=== PATIENT | male | born 1990 | race Native Hawaiian/Other Pacific Islander ===

== ENCOUNTER 2018-07-28 14:03 | Inpatient (IN) ==
[2018-07-28] MEDS ORDERED: Famotidine PF Inj 20 MG/2 ML Vial IV.PUSH ONE (18:16)
[2018-07-28] MEDS ORDERED: Sod Chloride 0.9% Inj 1,000 ML IV.SIG ONE (18:16)
[2018-07-28] MEDS ORDERED: MethylPREDNISolone Sod Succinate Inj 40 MG/ML Vial IV.PUSH ONE (18:19)
--- NOTE | 2018-07-28 18:28 | ED ---
HPI General Chief Complaint: Abdominal Pain Stated Complaint: GI/ Complaint Time Seen by Provider: 07/28/18 17:41 Source: patient Mode of arrival: ambulatory Limitations: no limitations History of Present Illness HPI narrative: 27-year-old male complains of abdominal pain. Patient states that the pain started about 2-1/2 weeks ago. Patient states that the pain has been constant pain cramping pain burning pain localized to upper abdomen with radiation to the mid abdomen. Patient has history of ulcerative colitis. Patient was seen in emergency room [address] scan abdomen pelvis shows colitis. Patient was given prescription for Cipro, Flagyl, prednisone and Zofran and discharged home. Patient states that he stopped taking Cipro and Flagyl after 2 days of that. Patient continued to take prednisone and Zofran as directed. Patient states that he had persistent nausea vomiting unable to keep medication down for the past 10 days. Patient was on Asacol and unable to keep that down either. Patient denies any fever chills. Patient states that he has persistent dry cough for the past 2 weeks also. Patient denies any chest pain or shortness of breath. Patient was seen by his blanking machine operator and was advised to acute come to ED for admission for IV fluids and IV and IV steroid. Patient has history of C. difficile in the past. MD complaint: Reports abdominal pain Onset (ago): week(s) Pain Consistency: constant Location: Reports periumbilical, LUQ, RUQ and epigastric Severity: moderate Severity scale (1-10): 7 Quality: Reports cramping and sharp Radiation: Reports none Migration to: Reports periumbilical Relieving factors: nothing Exacerbating factors: nothing Context: Reports history of similar episodes Associated symptoms: Reports nausea and vomiting Related Data Home Medications Medication Instructions Recorded Confirmed mesalamine [Asacol HD] 800 mg PO BID 07/18/18 07/18/18 Previous Rx's Medication Instructions Recorded ondansetron [Zofran ODT] 4 mg PO Q6-8H PRN #20 tab 07/18/18 oxycodone-acetaminophen [Percocet] 1 tab PO Q6H PRN #7 tab NS 07/18/18 Allergies Allergy/AdvReac Type Severity Reaction Status Date / Time No Known Allergies Allergy Verified 07/28/18 18:58 Review of Systems ROS: all other systems reviewed are negative [facility] Medical History Medical History Ulcerative colitis (Acute) Social History Social History Substance History: No History of Abuse Smoking Status: Never smoker How Often Do You Have a Drink Containing Alcohol: Never Recent Travel in [facility] within the Last 8 Weeks: No Recent Out of Country Travel within the Last 8 Weeks: No Immunization History Tetanus Immunization: <5 Years Exam Narrative Exam Narrative: GENERAL: Well-nourished, well-developed patient. SKIN: Focused skin assessment warm/dry. HEAD: Normocephalic. EYES: No scleral icterus. No injection or drainage. NECK: Supple, trachea midline. No JVD or lymphadenopathy. CARDIOVASCULAR: Regular rate and rhythm without murmurs, gallops, or rubs. RESPIRATORY: Breath sounds equal bilaterally. No accessory muscle use. GASTROINTESTINAL: Abdomen soft, nondistended. Patient has moderate tenderness on palpation of abdomen and epigastric area. No rebound tenderness. No mass. MUSCULOSKELETAL: No cyanosis, or edema. BACK: Nontender without obvious deformity. No CVA tenderness. Neurologic exam normal. Course Initial Documented Vital Signs Temperature 99.3 F 07/28/18 14:11 Pulse Rate 99 H 07/28/18 14:11 Respiratory Rate 16 07/28/18 14:11 Blood Pressure 119/67 07/28/18 14:11 Pulse Oximetry 96 07/28/18 14:11 Last Documented Vital Signs Temperature 99.3 F 07/28/18 14:11 Pulse Rate 94 H 07/28/18 18:12 Respiratory Rate 17 07/28/18 18:12 Blood Pressure 114/58 L 07/28/18 18:12 Pulse Oximetry 97 07/28/18 18:12 Medical Decision Making MDM Narrative Medical decision making narrative: 27-year-old male with persistent abdominal pain, nausea vomiting. History of ulcerative colitis. Patient was seen by blanking machine operator and advised admission for IV treatment. Normal saline solution 1 L IV bolus. Normal saline solution 125 cc an hour. Pepcid 20 mg IV. Solu-Medrol 40 mg IV now and every 8 hour. Patient can have clear fluid. Medical Screen Exam Complete: Yes Emergency Medical Condition: Yes Differential Diagnosis Differential Diagnosis: Differential diagnosis including acute exacerbation of ulcerative colitis, gastroenteritis, dehydration, electrolyte imbalance. Lab Data Lab results reviewed: Yes I reviewed the patient's lab results. Result diagrams: 07/28/18 18:30 07/28/18 18:30 Lab Results 07/28/18 07/28/18 Range/Units 18:30 18:30 WBC 11.9 H (4.0-11.0) th/mm3 RBC 4.12 L (4.50-5.90) mil/mm3 Hgb 11.6 L (13.0-17.0) gm/dL Hct 35.5 L (39.0-51.0) % MCV 86.1 (80.0-100.0) fL MCH 28.2 (27.0-34.0) pg MCHC 32.8 (32.0-36.0) % RDW 13.6 (11.6-17.2) % Plt Count 393 (150-450) th/mm3 MPV 8.7 (7.0-11.0) fL Neut % (Auto) 60.2 (16.0-70.0) % Lymph % (Auto) 24.6 (9.0-44.0) % [place] % (Auto) 12.4 H (0.0-8.0) % Eos % (Auto) 2.5 (0.0-4.0) % Baso % (Auto) 0.3 (0.0-2.0) % Neut # (Auto) 7.1 (1.8-7.7) th/mm3 Lymph # (Auto) 2.9 (1.0-4.8) th/mm3 [place] # (Auto) 1.5 H (0.0-0.9) th/mm3 Eos # (Auto) 0.3 (0.0-0.4) th/mm3 Baso # (Auto) 0.0 (0.0-0.2) th/mm3 WBC Differential . Differential Comment Auto diff final Sodium 138 (136-145) meq/L Potassium 4.0 (3.5-5.1) meq/L Chloride 105 (98-107) meq/L Carbon Dioxide 25.8 (21.0-32.0) meq/L Anion Gap 7 (5-15) meq/L BUN 4 L (7-18) mg/dL Creatinine 0.82 (0.60-1.30) mg/dL Estimated GFR Greater than 89 (>89) mL/min Random Glucose 79 (74-106) mg/dL Calcium 8.6 (8.5-10.1) mg/dL Total Bilirubin 0.3 (0.2-1.0) mg/dL AST 27 (15-37) U/L ALT 22 (12-78) U/L Alkaline Phosphatase 93 (45-117) U/L Total Protein 7.8 (6.4-8.2) g/dL Albumin 2.8 L (3.4-5.0) g/dL Lipase 115 (73-393) U/L Imaging Data Radiologist's impression: Chest X-Ray 07/28/18 18:16 CONCLUSION: Negative for acute process Discharge Plan Discharge Disposition Patient Disposition: 30 Still Patient Discharge Details Diagnosis: Ulcerative colitis without complications, Intractable nausea and vomiting Physicians Team ED Provider: Francisco Sheldon Primary Care Provider: Zandra Otero Rxs /Orders / Referrals /Forms Prescriptions: No Action mesalamine [Asacol HD] 800 mg Tablet,Delayed Release (Dr/Ec) 800 mg PO BID RF: 0 ondansetron [Zofran ODT] 4 mg tablet,disintegrating 4 mg PO Q6-8H PRN (Reason: nausea and vomiting) Qty: 20 RF: 0 oxycodone-acetaminophen [Percocet] 5-325 mg tablet 1 tab PO Q6H PRN (Reason: pain) Qty: 7 RF: 0 Discharge Interventions Interventions: Vital Signs Last Done: 07/28/18 18:12 Status ED Status: With Doctor
[2018-07-28] MEDS ORDERED: Sod Chloride 0.9% Inj 1,000 ML IV.CONT SCH (18:30)
--- NOTE | 2018-07-28 18:48 | XR ---
EXAM DATE: 07/28/2018 6:42 PM EST AGE/SEX: 27 years / Male INDICATIONS: Cough, vomiting. CLINICAL DATA: This is the patient's initial encounter. Patient reports that signs and symptoms have been present for 1 week and indicates a pain score of 0/10. MEDICAL/SURGICAL HISTORY: None. None. COMPARISON: [facility] [place] 1V SINGLE AP, 07/18/2018. . FINDINGS: A single AP view of the chest demonstrates the lungs to be symmetrically aerated without evidence of mass, infiltrate or effusion. The cardiomediastinal contours are unremarkable. Osseous structures a re intact. CONCLUSION: Negative for acute process Electronically signed by: Joe Singh MD 07/28/2018 6:47 PM EST
[2018-07-28 18:54] LABS: Baso % (Auto) 0.3 % (0.0-2.0); Eos # (Auto) 0.3 th/mm3 (0.0-0.4); Eos % (Auto) 2.5 % (0.0-4.0); Hematocrit 35.5 % (39.0-51.0); Hemoglobin 11.6 gm/dL (13.0-17.0); Lymph # (Auto) 2.9 th/mm3 (1.0-4.8); Lymph % (Auto) 24.6 % (9.0-44.0); Mean Corpuscular HGB Conc 32.8 % (32.0-36.0); Mean Corpuscular Hemoglobin 28.2 pg (27.0-34.0); Mean Corpuscular Volume 86.1 fL (80.0-100.0); Mean Platelet Volume 8.7 fL (7.0-11.0); Mono # (Auto) 1.5 th/mm3 (0.0-0.9); Mono % (Auto) 12.4 % (0.0-8.0); Neut # (Auto) 7.1 th/mm3 (1.8-7.7); Neut % (Auto) 60.2 % (16.0-70.0); Platelet Count 393 th/mm3 (150-450); Red Blood Count 4.12 mil/mm3 (4.50-5.90); Red Cell Distribution Width 13.6 % (11.6-17.2); White Blood Count 11.9 th/mm3 (4.0-11.0)
[2018-07-28 19:16] LABS: Alanine Aminotransferase 22 U/L (12-78); Albumin 2.8 g/dL (3.4-5.0); Anion Gap 7 meq/L (5-15); Aspartate Aminotransferase 27 U/L (15-37); Blood Urea Nitrogen 4 mg/dL (7-18); Calcium 8.6 mg/dL (8.5-10.1); Carbon Dioxide 25.8 meq/L (21.0-32.0); Chloride 105 meq/L (98-107); Glomerular Filtration Rate Greater Than 89 mL/min (>89); Glucose,Random 79 mg/dL (74-106); Lipase 115 U/L (73-393); Sodium 138 meq/L (136-145)
[2018-07-28 19:18] LABS: Alkaline Phosphatase 93 U/L (45-117); Total Protein 7.8 g/dL (6.4-8.2)
[2018-07-28] MEDS: Sod Chloride 0.9% Inj 1,000 ML IV.CONT SCH (20:52)
[2018-07-29] MEDS: Acetaminophen 325 MG Tablet PO PRN ×3 (01:28→17:07)
[2018-07-29] MEDS: MethylPREDNISolone Sod Succinate Inj 40 MG/ML Vial IV.PUSH SCH ×3 (01:31→17:09)
[2018-07-29] MEDS: Sod Chloride 0.9% Inj 1,000 ML IV.CONT SCH ×3 (06:43→22:18)
--- NOTE | 2018-07-29 08:33 | P.HP ---
History of Present Illness Primary Care Physician: Zandra Otero MD History of Present Illness: Yoav is a 27 year old man who presented to the ER last night with dry cough, vomiting, abdominal pain, and bloody diarrhea x10 days. He reports that last night he had "night sweats" and was freezing cold. His sheets were soaked in sweat this morning. He reports that after he was taken off mercaptopurine by Dr. Diaz on 06/27, he began to have abdominal pain and bloody diarrhea that sent him to the ER 07/18. He was put on antibiotics and prednisone but stopped his antibiotics two days after discharge because his stool sample came back negative for c. dificile. His pain persisted and he could not keep food or medications down for the past 10 days. He reports he lost 20 pounds in the last two weeks. He describes his abdominal pain as epigastric that radiates to his lower left quadrant when bearing down to have a bowel movement. He says the pain is dull, constant, and a 7/10 on the pain scale. It increases to an 8/10 and becomes sharp when having a bowel movement. The patient is having frequent, urgent, diarrhea. The patient describes passing hematochezia, "dark red clumps of blood" and "bubbly mucous" rectally. He denies melena, coffee ground emesis, or tenesmus. He vomited once this morning; he attributes his vomiting to the pain and says that Zofran does not help. He is concerned about the persistent cough and does not understand why he has it. He denies recent URI, allergic rhinitis or post-nasal drip. PMH: Ulcerative colitis; diagnosed 2006 Viral Meningitis (hospitalized 2016) C. Difficile (hospitalized 2016) PSHx: None Procedures: EGD, colonoscopy Medications: Home: Mesalamine 800 mg PO BID Social Hx: Never smoker, never drank alcohol Allergies: NKDA Family History: Paternal aunt with ulcerative colitis Radha Piedra, MS3 Inpatient Certification: I certify that the inpatient services were ordered in accordance with Medicare regulations governing the order. This includes certification that hospital inpatient services are reasonable and necessary and in the case of services not specified as inpatient-only under 42 CFR 419.22(n), that they are appropriately provided as inpatient services in accordance to with the 2-midnight benchmark under 43 CFR 412.3(e) Estimated Total Length of Stay (Days): 3 Plans for Post Hospital Care: Home [facility] - History History Provided By: Patient - Medical History Medical History: Medical History (Last Reviewed 07/28/18 @ 18:25 by Francisco Sheldon MD) Ulcerative colitis - Tobacco History Second Hand Smoke Exposure: No Tobacco Use In Past 30 Days: No Smoking Status: Never smoker - Alcohol History How Often Do You Have a Drink Containing Alcohol: Never - Substance Use History Substance History: No History of Abuse - Travel History Recent Travel in the [place] Within the Last 8 Weeks: No Recent Travel Out of the Country Within the Last 8 Weeks: No - Immunization History Tetanus Immunization: <5 Years Medications and Allergies Active Medications: Active Medications Acetaminophen (Tylenol) 650 mg PO Q4H PRN PRN Reason: Temp > 100.4 Last Admin: 07/29/18 08:00 Dose: 650 mg Sodium Chloride (Ns Inj) 1,000 mls @ 100 mls/hr IV.CONT .Q10H [facility] Last Infusion: 07/29/18 08:02 Dose: 100 mls/hr Methylprednisolone Sodium Succinate (Solumedrol Inj) 40 mg IV.PUSH Q8H [facility] Last Admin: 07/29/18 01:31 Dose: 40 mg Ondansetron HCl (Zofran Inj) 4 mg IV.PUSH Q6H PRN PRN Reason: NAUSEA OR VOMITING Allergies Allergy/AdvReac Type Severity Reaction Status Date / Time No Known Allergies Allergy Verified 07/28/18 18:58 Home Medications Medication Instructions Recorded Confirmed Type mesalamine [Asacol HD] 800 mg PO BID 07/18/18 07/28/18 History mercaptopurine 150 mg PO DAILY 07/28/18 07/28/18 History Exam Vital signs: Vital Signs 07/28/18 14:11 07/28/18 18:12 07/28/18 19:47 Temperature 99.3 F Pulse Rate 99 H 94 H Respiratory Rate 16 17 Blood Pressure 119/67 114/58 L 122/78 Pulse Oximetry 96 97 07/29/18 04:00 Temperature Pulse Rate 80 Respiratory Rate 18 Blood Pressure 101/58 L Pulse Oximetry 95 Intake & Output 07/28/18 07/29/18 07/29/18 18:59 06:59 18:59 Intake Total 1120 / 1120 Balance 1120 / 1120 Weight 248 kg 112.491 kg Intake: IV 1000 / 1000 Oral 120 / 120 Other: # Voids 4 Date of Last Bowel Movement 07/29/18 # Bowel Movements 2 Weight On Admission 112.491 kg Narrative: Pleasant young man, appears stated age. In no acute distress but visibly uncomfortable and in pain. Cardiovascular: Regular heart rate, no rubs, murmurs, or gallops upon auscultation. Respiratory: clear breath sounds, no rales, rhonchi, or wheezing Gastrointestinal: Hypoactive bowel sounds. Soft abdomen, no guarding or distension. Diffuse abdominal tenderness upon palpation, but increased in the epigastric region and lower quadrants. Radha Tadeo, MS3 Results - Labs CBC & Chem 7: 07/28/18 18:30 07/29/18 06:20 Labs: Laboratory Results - last 24 hr 07/28/18 07/28/18 18:30 18:30 WBC 11.9 H RBC 4.12 L Hgb 11.6 L Hct 35.5 L MCV 86.1 MCH 28.2 MCHC 32.8 RDW 13.6 Plt Count 393 MPV 8.7 Neut % (Auto) 60.2 Lymph % (Auto) 24.6 [place] % (Auto) 12.4 H Eos % (Auto) 2.5 Baso % (Auto) 0.3 Neut # (Auto) 7.1 Lymph # (Auto) 2.9 [place] # (Auto) 1.5 H Eos # (Auto) 0.3 Baso # (Auto) 0.0 WBC Differential . Differential Comment Auto diff final Sodium 138 Potassium 4.0 Chloride 105 Carbon Dioxide 25.8 Anion Gap 7 BUN 4 L Creatinine 0.82 Estimated GFR Greater than 89 Random Glucose 79 Calcium 8.6 Total Bilirubin 0.3 AST 27 ALT 22 Alkaline Phosphatase 93 Total Protein 7.8 Albumin 2.8 L Lipase 115 - Imaging Impressions Chest X-Ray 07/28/18 18:16 CONCLUSION: Negative for acute process Caprini VTE Risk Assessment Caprini Risk Assessment Model: Point Value = 1 Point Value = 2 Point Value = 3 Point Value = 5 Age 41-60 Minor surgery BMI > 25 kg/m2 Swollen legs Varicose veins or History of unexplained or recurrent spontaneous Oral contraceptives or hormone replacement Sepsis (< 1 month) Serious lung disease, including pneumonia (< 1 month) Abnormal pulmonary function Acute myocardial infarction Congestive heart failure (< 1 month) History of inflammatory bowel disease Medical patient at bed rest Age 61-74 Arthroscopic surgery Major open surgery (> 45 min) Laparoscopic surgery (> 45 min) Malignancy Confined to bed (> 72 hours) Immobilizing plaster cast Central venous access Age >= 75 History of VTE Family history of VTE Factor V Leiden Prothrombin [id number] Lupus anticoagulant Anticardiolipin antibodies Elevated serum homocysteine Heparin-induced thrombocytopenia Other congenital or acquired thrombophilia Stroke (< 1 month) Elective arthroplasty Hip, pelvis, or leg fracture Acute spinal cord injury (< 1 month) Prophylaxis Regimen: Total Risk Factor Score Risk Level Prophylaxis Regimen 0-1 Low Early ambulation 2 Moderate Order ONE of the following: *Sequential Compression Device (SCD) *Heparin 5000 units SQ BID 3-4 Higher Order ONE of the following medications: *Heparin 5000 units SQ TID *Enoxaparin/Lovenox 40 mg SQ daily (WT < 150 kg, CrCl > 30 mL/min) *Enoxaparin/Lovenox 30 mg SQ daily (WT < 150 kg, CrCl > 10-29 mL/min) *Enoxaparin/Lovenox 30 mg SQ BID (WT < 150 kg, CrCl > 30 mL/min) AND/OR *Sequential Compression Device (SCD) 5 or more Highest Order ONE of the following medications: *Heparin 5000 units SQ TID (Preferred with Epidurals) *Enoxaparin/Lovenox 40 mg SQ daily (WT < 150 kg, CrCl > 30 mL/min) *Enoxaparin/Lovenox 30 mg SQ daily (WT < 150 kg, CrCl > 10-29 mL/min) *Enoxaparin/Lovenox 30 mg SQ BID (WT < 150 kg, CrCl > 30 mL/min) AND *Sequential Compression Device (SCD) Assessment and Plan - Plan This is a 27 year old male with a history of ulcerative colitis presenting with dry cough, abdominal pain, bloody diarrhea, and vomiting. 1. Ulcerative colitis * abdominal pain - Patient is currently on acetaminophen for pain. May add more pain medication to manage. * bloody diarrhea * vomiting - continue fluids, NS at 125 cc/hour pain pattern suggest left-sided severe UC. treat with systemic steroids ( prednisone 40 to 60 mg/day) in addition to mesalamine/5-ASA. If symptoms persist then add sulfasalazine titrated up to 4-6 g/day. 2. Cough - chest x ray was negative for acute process. will consider symptomatic treatment Radha Piedra, MS3
[2018-07-29 08:37] LABS: Anion Gap 8 meq/L (5-15); Blood Urea Nitrogen 4 mg/dL (7-18); Calcium 8.7 mg/dL (8.5-10.1); Chloride 106 meq/L (98-107); Glomerular Filtration Rate Greater Than 89 mL/min (>89); Glucose,Random 116 mg/dL (74-106); Sodium 139 meq/L (136-145)
--- NOTE | 2018-07-29 10:06 | P.HPIM ---
History of Present Illness Primary Care Physician: Zandra Otero MD History of Present Illness: Yoav is a 27 year old man with a past medical history which includes Ulcerative colitis Dx at age 15, viral meningitis and C Diff 2015. Patient reports he is current he has been having his current ulcerative colitis flare since approximately July 02. Patient was on Mercaptopurine but had stopped mid June. Patient was seen 07/18/18 prescribed Cipro, Flagyl and prednisone. Patient reports he stopped taking the Cipro and Flagyl once he was told that his C diff testing was negative. Patient only took the Cipro and Flagyl for two days. Patient continued to take the prednisone with no relief. Patient spoke with Dr. Rowell outpatient and was instructed to go to the ER for further evaluation. Patient reports that his bloody liquid BMs are getting worse. He is now having approximately 16 bloody loose BMs a day. Patient also reports dull aching pain across his left lower quadrant and pain across his upper abdomen. Patient also reports N/V and chills. Patient has been able to take minimal PO intake and reports feeling weak. PMH: Ulcerative colitis; diagnosed 2006 Viral Meningitis (hospitalized 2016) C. Difficile (hospitalized 2016) PSHx: None Procedures: EGD, colonoscopy Medications: Home: Mesalamine 800 mg PO BID Social Hx: has a PHD in chiropractic medicine lives at home with his parents Never smoker, never drank alcohol Allergies: NKDA Family History: Paternal aunt with ulcerative colitis Inpatient Certification Inpatient Certification: I certify that the inpatient services were ordered in accordance with Medicare regulations governing the order. This includes certification that hospital inpatient services are reasonable and necessary and in the case of services not specified as inpatient-only under 42 CFR 419.22(n), that they are appropriately provided as inpatient services in accordance to with the 2-midnight benchmark under 43 CFR 412.3(e) Estimated Total Length of Stay (Days): 3 Plans for Post Hospital Care: Home Medications and Allergies Allergies Allergy/AdvReac Type Severity Reaction Status Date / Time Pork/Porcine Containing AdvReac Nausea/Vomi Verified 07/30/18 15:06 Products ting Home Medications Medication Instructions Recorded Confirmed Type mesalamine [Asacol HD] 800 mg PO BID 07/18/18 07/28/18 History mercaptopurine 150 mg PO DAILY 07/28/18 07/28/18 History Active Medications: Active Medications Acetaminophen (Tylenol) 650 mg PO Q4H PRN PRN Reason: Temp > 100.4 Last Admin: 07/29/18 08:00 Dose: 650 mg Sodium Chloride (Ns Inj) 1,000 mls @ 100 mls/hr IV.CONT .Q10H [facility] Last Infusion: 07/29/18 08:02 Dose: 100 mls/hr Methylprednisolone Sodium Succinate (Solumedrol Inj) 40 mg IV.PUSH Q8H [facility] Last Admin: 07/29/18 01:31 Dose: 40 mg Ondansetron HCl (Zofran Inj) 4 mg IV.PUSH Q6H PRN PRN Reason: NAUSEA OR VOMITING Physical Exam Vital signs: Last Vital Signs Temp 98.4 F 07/29/18 08:46 Pulse 86 07/29/18 08:46 Resp 20 07/29/18 08:46 BP 110/65 07/29/18 08:46 Pulse Ox 95 07/29/18 08:46 Narrative: GENERAL: This is a well-nourished, well-developed patient CARDIOVASCULAR: Regular rate and rhythm RESPIRATORY: Clear to auscultation. Breath sounds equal bilaterally. GASTROINTESTINAL: Abdomen soft, tender LLQ and epigastric area, nondistended. hyperactive active bowel sounds MUSCULOSKELETAL: Extremities without clubbing, cyanosis, or edema. NEURO: Alert & Oriented x4 to person, place, time, situation. Moves all ext x4 Results Labs CBC & Chem 7: 08/01/18 05:18 08/01/18 05:18 Caprini VTE Risk Assessment Caprini VTE Risk Assessment: No/Low Risk (score <= 1) Caprini Risk Assessment Model: Point Value = 1 Point Value = 2 Point Value = 3 Point Value = 5 Age 41-60 Minor surgery BMI > 25 kg/m2 Swollen legs Varicose veins or History of unexplained or recurrent spontaneous Oral contraceptives or hormone replacement Sepsis (< 1 month) Serious lung disease, including pneumonia (< 1 month) Abnormal pulmonary function Acute myocardial infarction Congestive heart failure (< 1 month) History of inflammatory bowel disease Medical patient at bed rest Age 61-74 Arthroscopic surgery Major open surgery (> 45 min) Laparoscopic surgery (> 45 min) Malignancy Confined to bed (> 72 hours) Immobilizing plaster cast Central venous access Age >= 75 History of VTE Family history of VTE Factor V Leiden Prothrombin [id number] Lupus anticoagulant Anticardiolipin antibodies Elevated serum homocysteine Heparin-induced thrombocytopenia Other congenital or acquired thrombophilia Stroke (< 1 month) Elective arthroplasty Hip, pelvis, or leg fracture Acute spinal cord injury (< 1 month) Prophylaxis Regimen: Total Risk Factor Score Risk Level Prophylaxis Regimen 0-1 Low Early ambulation 2 Moderate Order ONE of the following: *Sequential Compression Device (SCD) *Heparin 5000 units SQ BID 3-4 Higher Order ONE of the following medications: *Heparin 5000 units SQ TID *Enoxaparin/Lovenox 40 mg SQ daily (WT < 150 kg, CrCl > 30 mL/min) *Enoxaparin/Lovenox 30 mg SQ daily (WT < 150 kg, CrCl > 10-29 mL/min) *Enoxaparin/Lovenox 30 mg SQ BID (WT < 150 kg, CrCl > 30 mL/min) AND/OR *Sequential Compression Device (SCD) 5 or more Highest Order ONE of the following medications: *Heparin 5000 units SQ TID (Preferred with Epidurals) *Enoxaparin/Lovenox 40 mg SQ daily (WT < 150 kg, CrCl > 30 mL/min) *Enoxaparin/Lovenox 30 mg SQ daily (WT < 150 kg, CrCl > 10-29 mL/min) *Enoxaparin/Lovenox 30 mg SQ BID (WT < 150 kg, CrCl > 30 mL/min) AND *Sequential Compression Device (SCD) Assessment and Plan Plan Yoav is a 27 year old man with a past medical history which includes Ulcerative colitis, viral meningitis and C Diff 2015. Patient reports he is current he has been having his current ulcerative colitis flare since approximately July 02. Patient was seen 07/18/18 prescribed Cipro, Flagyl and prednisone. Patient was on Mercaptopurine but had stopped mid June. Patient reports he stopped taking the Cipro and Flagyl once he was told that his C diff testing was negative. Patient only took the Cipro and Flagyl for two days. Patient continued to take the prednisone with no relief. Patient spoke with Dr. Rowell outpatient and was instructed to go to the ER for further evaluation. Patient reports that his bloody liquid BMs are getting worse. He is now having approximately 16 bloody loose BMs a day. Patient also reports left lower quadrant pain and pain across his upper abdomen. Patient also reports N/V and chills. Ulcerative colitis Continue solu medrol 40 mg IV Q8H NS at 100ml/H Zofran as needed Liquid diet consult GI HgB on admission 11.6 recheck now and tomorrow AM DVT prophylaxis with SCDs Attending Attestation Patient examined. Assessment and plan formulated with Joan Castillo PA-C. I agree with the above. H&P: Quality VTE Deep Vein Thrombosis/Pulmonary Embolism Present on Admission: No
[2018-07-29 11:43] LABS: Baso % (Auto) 0.2 % (0.0-2.0); Hematocrit 34.2 % (39.0-51.0); Hemoglobin 11.3 gm/dL (13.0-17.0); Lymph # (Auto) 1.4 th/mm3 (1.0-4.8); Lymph % (Auto) 9.9 % (9.0-44.0); Mean Corpuscular HGB Conc 33.1 % (32.0-36.0); Mean Corpuscular Volume 87.5 fL (80.0-100.0); Mean Platelet Volume 8.3 fL (7.0-11.0); Mono % (Auto) 6.8 % (0.0-8.0); Neut # (Auto) 12.1 th/mm3 (1.8-7.7); Neut % (Auto) 83.1 % (16.0-70.0); Platelet Count 422 th/mm3 (150-450); White Blood Count 14.5 th/mm3 (4.0-11.0)
--- NOTE | 2018-07-29 14:37 | P.CONGI ---
History of Present Illness Consult date: 07/29/18 Consult reason: Flare of ulcerative colitis Chief complaint: Acute exacerbation of ulcerative colitis History of Present Illness: This patient is a 27-year-old white male with past medical history significant for ulcerative colitis. [facility] with complaint of cough, vomiting and abdominal pain. Patient also endorses 10 days onset of bloody diarrhea. Patient reports that he was taken off mercaptopurine by on 06/27/2018. At that time, he began to have abdominal pain with bloody diarrhea that caused him to visit the ER after being discharged from the emergency room, he was placed on antibiotics and prednisone but states he stopped taking antibiotics 2 days after being discharged because his stool sample came back negative for C. difficile. Patient endorses that he has lost 20 pounds in the last 2 weeks. He describes his abdominal pain is sharp and dull. He states that all the left upper quadrant radiating down towards left lower quadrant where pain becomes sharp. Patient endorses generalized abdominal sharp pain with when having a bowel movement. Patient states that bowel movements have been loose and watery with dark red clumps of blood patient denies any vomiting or coffee-ground emesis. Upon consultation, patient reports that he is able to tolerate soups with small amount of starches. Patient is stools as bright brown to yellow in color with dark limbs on blood. Patient does state that he has had occasional episodes of vomiting but does not attribute this to nausea. He states vomiting accompanies bowel movements and he feels this is due to increased pain. Patient states last colonoscopy done in 2009 when he was diagnosed with ulcerative colitis. Patient states family history significant for a paternal aunt who has been diagnosed with ulcerative colitis. Patient denies any use of tobacco or alcohol products. <Ileana Bills - Last Filed: 07/29/18 15:14> Review of Systems All other systems reviewed negative except as stated in HPI <Ileana Bills - Last Filed: 07/29/18 15:14> PMFSH - History History Provided By: Patient - Medical History Medical History: Medical History (Last Reviewed 07/28/18 @ 18:25 by Francisco Sheldon MD) Ulcerative colitis - Tobacco History Second Hand Smoke Exposure: No Tobacco Use In Past 30 Days: No Smoking Status: Never smoker - Alcohol History How Often Do You Have a Drink Containing Alcohol: Never - Substance Use History Substance History: No History of Abuse - Travel History Recent Travel in the [place] Within the Last 8 Weeks: No Recent Travel Out of the Country Within the Last 8 Weeks: No - Immunization History Tetanus Immunization: <5 Years <Ileana Bills - Last Filed: 07/29/18 15:14> - Medical History Medical History: Medical History (Last Reviewed 07/28/18 @ 18:25 by Francisco Sheldon MD) Ulcerative colitis <Karson Pinedo - Last Filed: 07/30/18 12:24> Medications and Allergies Active Medications: Active Medications Acetaminophen (Tylenol) 650 mg PO Q4H PRN PRN Reason: Temp > 100.4 Last Admin: 07/29/18 08:00 Dose: 650 mg Sodium Chloride (Ns Inj) 1,000 mls @ 100 mls/hr IV.CONT .Q10H [facility]KEN[facility] Last Admin: 07/29/18 10:33 Dose: 100 mls/hr Methylprednisolone Sodium Succinate (Solumedrol Inj) 40 mg IV.PUSH Q8H MAKENNA Last Admin: 07/29/18 10:10 Dose: 40 mg Ondansetron HCl (Zofran Inj) 4 mg IV.PUSH Q6H PRN PRN Reason: NAUSEA OR VOMITING <Ileana Bills - Last Filed: 07/29/18 15:14> Active Medications: Active Medications Acetaminophen (Tylenol) 650 mg PO Q4H PRN PRN Reason: Temp > 100.4 Last Admin: 07/29/18 17:07 Dose: 650 mg Acetaminophen (Tylenol) 650 mg PO Q6H PRN PRN Reason: PAIN SCALE 1 TO 10 Last Admin: 07/30/18 09:59 Dose: 650 mg Dicyclomine HCl (Bentyl) 10 mg PO QID PRN PRN Reason: ABDOMINAL CRAMPING Sodium Chloride (Ns Inj) 1,000 mls @ 100 mls/hr IV.CONT .Q10H [facility] Last Admin: 07/30/18 08:29 Dose: 100 mls/hr Mesalamine (Asacol Hd Dr) 1,600 mg PO Q8H [facility] Methylprednisolone Sodium Succinate (Solumedrol Inj) 40 mg IV.PUSH Q8H [facility] Last Admin: 07/30/18 09:59 Dose: 40 mg Ondansetron HCl (Zofran Inj) 4 mg IV.PUSH Q6H PRN PRN Reason: NAUSEA OR VOMITING <Karson Pinedo - Last Filed: 07/30/18 12:24> Allergies Allergy/AdvReac Type Severity Reaction Status Date / Time No Known Allergies Allergy Verified 07/28/18 18:58 Home Medications Medication Instructions Recorded Confirmed Type mesalamine [Asacol HD] 800 mg PO BID 07/18/18 07/28/18 History mercaptopurine 150 mg PO DAILY 07/28/18 07/28/18 History Exam Vital signs: Vital Signs 07/28/18 18:12 07/28/18 19:47 07/29/18 04:00 Temperature Pulse Rate 94 H 80 Respiratory Rate 17 18 Blood Pressure 114/58 L 122/78 101/58 L Pulse Oximetry 97 95 07/29/18 08:46 07/29/18 11:13 Temperature 98.4 F 98.3 F Pulse Rate 86 76 Respiratory Rate 20 20 Blood Pressure 110/65 102/55 L Pulse Oximetry 95 97 Intake & Output 07/28/18 07/29/18 07/29/18 18:59 06:59 18:59 Intake Total 1120 / 1120 1000 / 1000 Balance 1120 / 1120 1000 / 1000 Weight 248 kg 112.491 kg Intake: IV 1000 / 1000 1000 / 1000 NS Inj 1,000 ML @ 100 mls/hr IV 1000 / 1000 .CONT .Q10H [facility] Rx#:[id number] Oral 120 / 120 Other: # Voids 4 Date of Last Bowel Movement 07/29/18 07/29/18 # Bowel Movements 2 Weight On Admission 112.491 kg - Constitutional no acute distress - Routine HEENT Exam Head: Present: normocephalic - Routine Respiratory Exam Present: CTA bilaterally. Absent: accessory muscle use - Routine Cardiovascular Exam Present: RRR - Routine Abdominal Exam Present: soft, normoactive bowel sounds, tenderness. Absent: distended, guarding, firm, rigid - Routine Skin Exam Present: dry, warm. Absent: pallor - Routine Neurological Exam Present: alert <Bills,Ileana - Last Filed: 07/29/18 15:14> Vital signs: Vital Signs 07/29/18 16:54 07/29/18 17:46 07/29/18 20:00 Temperature 98.6 F 98.0 F Pulse Rate 81 77 Respiratory Rate 18 18 16 Blood Pressure 113/58 L 102/56 L Pulse Oximetry 96 95 07/30/18 00:00 07/30/18 04:00 07/30/18 05:33 Temperature 98.2 F 97.4 F L Pulse Rate 76 58 L Respiratory Rate 16 12 Blood Pressure 98/55 L 92/51 L 98/54 L Pulse Oximetry 95 95 07/30/18 07:45 Temperature 97.6 F Pulse Rate 73 Respiratory Rate 16 Blood Pressure 98/56 L Pulse Oximetry 97 Intake & Output 07/29/18 07/30/18 07/30/18 18:59 06:59 18:59 Intake Total 1000 / 1000 1480 / 1480 1000 / 1000 Balance 1000 / 1000 1480 / 1480 1000 / 1000 Intake: IV 1000 / 1000 1000 / 1000 1000 / 1000 NS Inj 1,000 ML @ 100 mls/hr IV 1000 / 1000 1000 / 1000 1000 / 1000 .CONT .Q10H [facility] Rx#:[id number] Oral 480 / 480 Other: # Voids 1 Date of Last Bowel Movement 07/29/18 07/30/18 # Bowel Movements 1 <Karson Pinedo A - Last Filed: 07/30/18 12:24> Results - Labs CBC & Chem 7: 07/29/18 11:27 07/29/18 06:20 Labs: Laboratory Results - last 24 hr 07/28/18 07/28/18 07/29/18 18:30 18:30 06:20 WBC 11.9 H RBC 4.12 L Hgb 11.6 L Hct 35.5 L MCV 86.1 MCH 28.2 MCHC 32.8 RDW 13.6 Plt Count 393 MPV 8.7 Neut % (Auto) 60.2 Lymph % (Auto) 24.6 Polk % (Auto) 12.4 H Eos % (Auto) 2.5 Baso % (Auto) 0.3 Neut # (Auto) 7.1 Lymph # (Auto) 2.9 Polk # (Auto) 1.5 H Eos # (Auto) 0.3 Baso # (Auto) 0.0 WBC Differential . Differential Comment Auto diff final Sodium 138 139 Potassium 4.0 4.0 Chloride 105 106 Carbon Dioxide 25.8 25.0 Anion Gap 7 8 BUN 4 L 4 L Creatinine 0.82 0.67 Estimated GFR Greater than 89 Greater than 89 Random Glucose 79 116 H Calcium 8.6 8.7 Total Bilirubin 0.3 AST 27 ALT 22 Alkaline Phosphatase 93 Total Protein 7.8 Albumin 2.8 L Lipase 115 07/29/18 11:27 WBC 14.5 H RBC 3.90 L Hgb 11.3 L Hct 34.2 L MCV 87.5 MCH 29.0 MCHC 33.1 RDW 14.0 Plt Count 422 MPV 8.3 Neut % (Auto) 83.1 H Lymph % (Auto) 9.9 Polk % (Auto) 6.8 Eos % (Auto) 0.0 Baso % (Auto) 0.2 Neut # (Auto) 12.1 H Lymph # (Auto) 1.4 Polk # (Auto) 1.0 H Eos # (Auto) 0.0 Baso # (Auto) 0.0 WBC Differential . Differential Comment Auto diff final Sodium Potassium Chloride Carbon Dioxide Anion Gap BUN Creatinine Estimated GFR Random Glucose Calcium Total Bilirubin AST ALT Alkaline Phosphatase Total Protein Albumin Lipase - Imaging Impressions Chest X-Ray 07/28/18 18:16 CONCLUSION: Negative for acute process <Ileana Bills - Last Filed: 07/29/18 15:14> - Labs CBC & Chem 7: 07/30/18 06:34 07/30/18 06:34 Labs: Laboratory Results - last 24 hr 07/30/18 07/30/18 06:34 06:34 WBC 9.0 RBC 3.81 L Hgb 11.2 L Hct 33.3 L MCV 87.4 MCH 29.5 MCHC 33.7 RDW 14.0 Plt Count 427 MPV 8.3 Neut % (Auto) 82.5 H Lymph % (Auto) 13.5 Polk % (Auto) 3.8 Eos % (Auto) 0.0 Baso % (Auto) 0.2 Neut # (Auto) 7.4 Lymph # (Auto) 1.2 Polk # (Auto) 0.3 Eos # (Auto) 0.0 Baso # (Auto) 0.0 WBC Differential . Differential Comment Auto diff final Sodium 141 Potassium 4.1 Chloride 108 H Carbon Dioxide 26.5 Anion Gap 7 BUN 5 L Creatinine 0.71 Estimated GFR Greater than 89 Random Glucose 122 H Calcium 8.5 <Karson Pinedo - Last Filed: 07/30/18 12:24> Assessment and Plan (1) Ulcerative colitis without complications Status: Acute Code(s): K51.90 - Ulcerative colitis, unspecified, without complications - Plan This patient is a 27-year-old white male with past medical history significant for ulcerative colitis. [facility] with complaint of cough, vomiting and abdominal pain. Patient also endorses 10 days onset of bloody diarrhea. Patient reports that he was taken off mercaptopurine by on 06/27/2018. At that time, he began to have abdominal pain with bloody diarrhea that caused him to visit the ER after being discharged from the emergency room, he was placed on antibiotics and prednisone but states he stopped taking antibiotics 2 days after being discharged because his stool sample came back negative for C. difficile. Patient endorses that he has lost 20 pounds in the last 2 weeks. He describes his abdominal pain is sharp and dull. He states that all the left upper quadrant radiating down towards left lower quadrant where pain becomes sharp. Patient endorses generalized abdominal sharp pain with when having a bowel movement. Patient states that bowel movements have been loose and watery with dark red clumps of blood patient denies any vomiting or coffee-ground emesis. Upon consultation, patient reports that he is able to tolerate soups with small amount of starches. Patient is stools as bright brown to yellow in color with dark limbs on blood. Patient does state that he has had occasional episodes of vomiting but does not attribute this to nausea. He states vomiting accompanies bowel movements and he feels this is due to increased pain. Patient states last colonoscopy done in 2009 when he was diagnosed with ulcerative colitis. Patient states family history significant for a paternal aunt who has been diagnosed with ulcerative colitis. Patient denies any use of tobacco or alcohol products. Ulcerative colitis flare Patient endorses bloody diarrhea times 10 days. States stools are loose and watery with dark red clumps of blood. Patient denies any nausea or hematemesis. Patient taken off mercaptopurine on 06/27/2018. At that time he began to have abdominal pain with bloody diarrhea. Patient was then placed on antibiotics and prednisone. C. difficile stool specimen negative as per patient. Patient reports 20 pound weight loss in the last 2 weeks. WBC 14.5 RBC 3.9 hemoglobin 11.3 hematocrit 34.2 Plan Full liquid diet advance diet as tolerated continue IV steroids analgesia and antiemetics as per attending monitor labs Await stool studies consider mesalamine supportive care further recommendations to follow This patient has been seen by myself and Dr. Pinedo and this note is written on his behalf. - Attending Attestation Dr. Pinedo <Ileana Bills - Last Filed: 07/29/18 15:14> (1) Ulcerative colitis without complications Status: Acute Code(s): K51.90 - Ulcerative colitis, unspecified, without complications - Attending Attestation Seen and examined, plan as above. Will treat current flare up and will need medications adjustment with possible restarting Mercaptopurine or biological agent. Further recommendations to follow. Thank you for the consult <Karson Pinedo - Last Filed: 07/30/18 12:24> <Ileana Bills - Last Filed: 07/29/18 15:14> (1) Ulcerative colitis without complications Qualifiers: Ulcerative colitis location: unspecified ulcerative colitis location Qualified Code(s): K51.90 - Ulcerative colitis, unspecified, without complications <Karson Pinedo - Last Filed: 07/30/18 12:24> (1) Ulcerative colitis without complications Qualifiers: Ulcerative colitis location: unspecified ulcerative colitis location Qualified Code(s): K51.90 - Ulcerative colitis, unspecified, without complications
[2018-07-29] MEDS ORDERED: Dicyclomine 10 MG Capsule PO PRN (15:00)
[2018-07-29] MEDS: Mesalamine 800 MG Tablet DR PO SCH (17:08)
[2018-07-30] MEDS: Acetaminophen 325 MG Tablet PO PRN ×2 (01:09→09:59)
[2018-07-30] MEDS: Sod Chloride 0.9% Inj 1,000 ML IV.CONT SCH ×3 (01:09→12:42)
[2018-07-30] MEDS: MethylPREDNISolone Sod Succinate Inj 40 MG/ML Vial IV.PUSH SCH ×3 (01:10→18:19)
[2018-07-30 06:59] LABS: Baso % (Auto) 0.2 % (0.0-2.0); Hematocrit 33.3 % (39.0-51.0); Hemoglobin 11.2 gm/dL (13.0-17.0); Lymph # (Auto) 1.2 th/mm3 (1.0-4.8); Lymph % (Auto) 13.5 % (9.0-44.0); Mean Corpuscular HGB Conc 33.7 % (32.0-36.0); Mean Corpuscular Hemoglobin 29.5 pg (27.0-34.0); Mean Corpuscular Volume 87.4 fL (80.0-100.0); Mean Platelet Volume 8.3 fL (7.0-11.0); Mono # (Auto) 0.3 th/mm3 (0.0-0.9); Mono % (Auto) 3.8 % (0.0-8.0); Neut # (Auto) 7.4 th/mm3 (1.8-7.7); Neut % (Auto) 82.5 % (16.0-70.0); Platelet Count 427 th/mm3 (150-450); Red Blood Count 3.81 mil/mm3 (4.50-5.90)
[2018-07-30 07:21] LABS: Anion Gap 7 meq/L (5-15); Blood Urea Nitrogen 5 mg/dL (7-18); Calcium 8.5 mg/dL (8.5-10.1); Carbon Dioxide 26.5 meq/L (21.0-32.0); Chloride 108 meq/L (98-107); Glomerular Filtration Rate Greater Than 89 mL/min (>89); Glucose,Random 122 mg/dL (74-106); Potassium 4.1 meq/L (3.5-5.1); Sodium 141 meq/L (136-145)
[2018-07-30] MEDS: Mesalamine 800 MG Tablet DR PO SCH ×2 (08:29→16:38)
--- NOTE | 2018-07-30 09:36 | P.PNIM ---
Subjective Interval history: Pt reports that he had 3 BMs last night, one of which was mostly all bloody Stools are still liquid but he feels that the pain is lessening which occurs with the BMs Denies any nausea or vomiting Pt requesting to change the dosing on the Asacol to Q8H from TID so that he gets the dose more evening distributed instead of just getting it during the day and going for several hours overnight without the medication. His BP has been low and complains of some headache He tolerated solid soft food last night. Pt reports some night sweats since his admission. Physical Exam Vital signs: Last Vital Signs Temp 97.6 F 07/30/18 07:45 Pulse 73 07/30/18 07:45 Resp 16 07/30/18 07:45 BP 98/56 L 07/30/18 07:45 Pulse Ox 97 07/30/18 07:45 Narrative: GENERAL: This is a well-nourished, well-developed patient CARDIOVASCULAR: Regular rate and rhythm RESPIRATORY: Clear to auscultation. Breath sounds equal bilaterally. GASTROINTESTINAL: Abdomen soft, tender LLQ and epigastric area, nondistended. hyperactive active bowel sounds MUSCULOSKELETAL: Extremities without clubbing, cyanosis, or edema. NEURO: Alert & Oriented x4 to person, place, time, situation. Moves all ext x4 Results Labs CBC & Chem 7: 08/04/18 05:36 08/04/18 05:36 Imaging Chest X-Ray 07/28/18 18:16 CONCLUSION: Negative for acute process Assessment and Plan Assessment (1) Ulcerative colitis without complications: Code(s): K51.90 - Ulcerative colitis, unspecified, without complications Status: Acute Plan Ulcerative colitis - Pt is a 27 y/o man with Ulcerative colitis, and hx of viral meningitis and C Diff in 2015. He was originally diagnosed with UC in 2009 and was taking Asacol and 6-MP since 2009. Patient reported that he had seen Dr. Reyes in mid June and requested to be taken off the 6-MP. He then began having his current ulcerative colitis flare since approximately July 02. Patient was seen 07/18/18 in the ED and prescribed Cipro, Flagyl and prednisone. Patient reports he stopped taking the Cipro and Flagyl once he was told that his C diff testing was negative. Patient only took the Cipro and Flagyl for two days. Patient continued to take the prednisone with no relief. Patient spoke with Dr. Rowell outpatient and was instructed to go to the ER for further evaluation. When he is not flaring he averages about 4 BMs per day. He is now having approximately 16 bloody loose BMs a day. Patient also reports left lower quadrant pain and pain across his upper abdomen and had reported N/V and chills prior to admission. - Pt was started on Solu-Medrol 40 mg IV Q8H at admission and Asacol 1600mg TID - GI is following. - Pt is on NS at 100ml/hr - Stool studies are pending. - His diarrhea seems to be slowing down, he is less painful. No further N/V. Pt is having some night sweats. - Zofran as needed - Tolerating soft diet - His Hgb is stable at 11.2 today - Monitor labs. - DVT prophylaxis with SCDs Attending Attestation Patient examined. Assessment and plan formulated with Shannan Moy PA-C. I agree with the above. Progress Note: Quality VTE Deep Vein Thrombosis/Pulmonary Embolism Present on Admission: No _ (1) Ulcerative colitis without complications Qualifiers: Ulcerative colitis location: unspecified ulcerative colitis location Qualified Code(s): K51.90 - Ulcerative colitis, unspecified, without complications
--- NOTE | 2018-07-30 14:27 | P.PNGI ---
Subjective Interval history: Pt is resting in bed, reports increased frequency in stools but now, he has alternating stools and blood where it was straight blood before, endorses upper abd pain and lower abd pain preceding having BM. Discussed doing Colonoscopy with pt, but not sure and would like to discuss with Dr. Pinedo first, for now , will plan tentatively for Saturday. <Sahil curtis - Last Filed: 07/30/18 14:13> Physical Exam Vital signs: Vital Signs 07/29/18 16:54 07/29/18 17:46 07/29/18 20:00 Temperature 98.6 F 98.0 F Pulse Rate 81 77 Respiratory Rate 18 18 16 Blood Pressure 113/58 L 102/56 L Pulse Oximetry 96 95 07/30/18 00:00 07/30/18 04:00 07/30/18 05:33 Temperature 98.2 F 97.4 F L Pulse Rate 76 58 L Respiratory Rate 16 12 Blood Pressure 98/55 L 92/51 L 98/54 L Pulse Oximetry 95 95 07/30/18 07:45 07/30/18 12:00 Temperature 97.6 F 98.2 F Pulse Rate 73 79 Respiratory Rate 16 16 Blood Pressure 98/56 L 115/60 Pulse Oximetry 97 98 Intake & Output 07/29/18 07/30/18 07/30/18 18:59 06:59 18:59 Intake Total 1000 / 1000 1480 / 1480 1000 / 1000 Balance 1000 / 1000 1480 / 1480 1000 / 1000 Intake: IV 1000 / 1000 1000 / 1000 1000 / 1000 NS Inj 1,000 ML @ 100 mls/hr IV 1000 / 1000 1000 / 1000 1000 / 1000 .CONT .Q10H [facility] Rx#:[id number] Oral 480 / 480 Other: # Voids 1 Date of Last Bowel Movement 07/29/18 07/30/18 07/30/18 # Bowel Movements 1 - Constitutional no acute distress - Routine HEENT Exam Head: Present: normocephalic - Routine Neck Exam Present: supple - Routine Respiratory Exam Present: CTA bilaterally - Routine Cardiovascular Exam Present: RRR - Routine Abdominal Exam Present: soft, normoactive bowel sounds, tenderness. Absent: distended, rebound - Routine Extremities Exam Absent: cyanosis, edema - Routine Skin Exam Present: intact, dry - Routine Neurological Exam Present: alert, oriented X3 <Sahil Delvalle - Last Filed: 07/30/18 14:13> Vital signs: Vital Signs 07/29/18 16:54 07/29/18 17:46 07/29/18 20:00 Temperature 98.6 F 98.0 F Pulse Rate 81 77 Respiratory Rate 18 18 16 Blood Pressure 113/58 L 102/56 L Pulse Oximetry 96 95 07/30/18 00:00 07/30/18 04:00 07/30/18 05:33 Temperature 98.2 F 97.4 F L Pulse Rate 76 58 L Respiratory Rate 16 12 Blood Pressure 98/55 L 92/51 L 98/54 L Pulse Oximetry 95 95 07/30/18 07:45 07/30/18 12:00 Temperature 97.6 F 98.2 F Pulse Rate 73 79 Respiratory Rate 16 16 Blood Pressure 98/56 L 115/60 Pulse Oximetry 97 98 Intake & Output 07/29/18 07/30/18 07/30/18 18:59 06:59 18:59 Intake Total 1000 / 1000 1480 / 1480 1000 / 1000 Balance 1000 / 1000 1480 / 1480 1000 / 1000 Intake: IV 1000 / 1000 1000 / 1000 1000 / 1000 NS Inj 1,000 ML @ 100 mls/hr IV 1000 / 1000 1000 / 1000 1000 / 1000 .CONT .Q10H [facility] Rx#:[id number] Oral 480 / 480 Other: # Voids 1 Date of Last Bowel Movement 07/29/18 07/30/18 07/30/18 # Bowel Movements 1 <Bessy Pinedolorena Paige - Last Filed: 07/30/18 15:38> Results - Labs CBC & Chem 7: 07/30/18 06:34 07/30/18 06:34 Laboratory Results - last 24 hr 07/30/18 07/30/18 06:34 06:34 WBC 9.0 RBC 3.81 L Hgb 11.2 L Hct 33.3 L MCV 87.4 MCH 29.5 MCHC 33.7 RDW 14.0 Plt Count 427 MPV 8.3 Neut % (Auto) 82.5 H Lymph % (Auto) 13.5 [place] % (Auto) 3.8 Eos % (Auto) 0.0 Baso % (Auto) 0.2 Neut # (Auto) 7.4 Lymph # (Auto) 1.2 [place] # (Auto) 0.3 Eos # (Auto) 0.0 Baso # (Auto) 0.0 WBC Differential . Differential Comment Auto diff final Sodium 141 Potassium 4.1 Chloride 108 H Carbon Dioxide 26.5 Anion Gap 7 BUN 5 L Creatinine 0.71 Estimated GFR Greater than 89 Random Glucose 122 H Calcium 8.5 Microbiology 07/29/18 19:09 Stool Enteric Pathogens (PCR) - Final No enteric pathogens detected by PCR (No Salmonella sp., Shigella sp., Campylobacter sp., Yersinia enterocolitica, Vibrio sp., Norovirus, or EHEC (Shiga Toxin 1 or Shiga Toxin 2) detected. 07/29/18 19:09 Stool Stool for WBCs - Final Rare WBC's <Sahil Delvalle - Last Filed: 07/30/18 14:13> - Labs CBC & Chem 7: 07/30/18 06:34 07/30/18 06:34 Laboratory Results - last 24 hr 07/30/18 07/30/18 06:34 06:34 WBC 9.0 RBC 3.81 L Hgb 11.2 L Hct 33.3 L MCV 87.4 MCH 29.5 MCHC 33.7 RDW 14.0 Plt Count 427 MPV 8.3 Neut % (Auto) 82.5 H Lymph % (Auto) 13.5 [place] % (Auto) 3.8 Eos % (Auto) 0.0 Baso % (Auto) 0.2 Neut # (Auto) 7.4 Lymph # (Auto) 1.2 [place] # (Auto) 0.3 Eos # (Auto) 0.0 Baso # (Auto) 0.0 WBC Differential . Differential Comment Auto diff final Sodium 141 Potassium 4.1 Chloride 108 H Carbon Dioxide 26.5 Anion Gap 7 BUN 5 L Creatinine 0.71 Estimated GFR Greater than 89 Random Glucose 122 H Calcium 8.5 Microbiology 07/29/18 19:09 Stool Enteric Pathogens (PCR) - Final No enteric pathogens detected by PCR (No Salmonella sp., Shigella sp., Campylobacter sp., Yersinia enterocolitica, Vibrio sp., Norovirus, or EHEC (Shiga Toxin 1 or Shiga Toxin 2) detected. 07/29/18 19:09 Stool Stool for WBCs - Final Rare WBC's <Karson Pinedo - Last Filed: 07/30/18 15:38> Assessment and Plan (1) Ulcerative colitis without complications Status: Acute Code(s): K51.90 - Ulcerative colitis, unspecified, without complications - Plan This patient is a 27-year-old white male with past medical history significant for ulcerative colitis. [facility] with complaint of cough, vomiting and abdominal pain. Patient also endorses 10 days onset of bloody diarrhea. Patient reports that he was taken off mercaptopurine by on 06/27/2018. At that time, he began to have abdominal pain with bloody diarrhea that caused him to visit the ER after being discharged from the emergency room, he was placed on antibiotics and prednisone but states he stopped taking antibiotics 2 days after being discharged because his stool sample came back negative for C. difficile. Patient endorses that he has lost 20 pounds in the last 2 weeks. He describes his abdominal pain is sharp and dull. He states that all the left upper quadrant radiating down towards left lower quadrant where pain becomes sharp. Patient endorses generalized abdominal sharp pain with when having a bowel movement. Patient states that bowel movements have been loose and watery with dark red clumps of blood patient denies any vomiting or coffee-ground emesis. Upon consultation, patient reports that he is able to tolerate soups with small amount of starches. Patient is stools as bright brown to yellow in color with dark limbs on blood. Patient does state that he has had occasional episodes of vomiting but does not attribute this to nausea. He states vomiting accompanies bowel movements and he feels this is due to increased pain. Patient states last colonoscopy done in 2009 when he was diagnosed with ulcerative colitis. Patient states family history significant for a paternal aunt who has been diagnosed with ulcerative colitis. Patient denies any use of tobacco or alcohol products. Ulcerative colitis flare/bloody diarrhea Patient taken off mercaptopurine on 06/27/2018. At that time he began to have abdominal pain with bloody diarrhea. Patient was then placed on antibiotics and prednisone. C. difficile stool specimen negative as per patient. Patient reports 20 pound weight loss in the last 2 weeks. , last colonoscopy was in 2009, pt was diagnosed with UC [place] 2005 CT on 07/18/18 showed abnormal appearance to the colon from the mid transverse colon down to the distal sigmoid colon with some induration the pericolonic fat, wall thickening, and loss of haustration. hgb today is 11.2 Discussed colonoscopy with pt and mom, but would like to have done on Saturday Plan Regular diet Pt would like to have colonoscopy done on Saturday, clears tomorrow golytely tomorrow continue IV steroids Cont. Mesalamine analgesia and antiemetics as per attending monitor labs Await stool studies Pt will need to go back to Mercaptopurine supportive care further recommendations to follow This patient has been seen by myself and Dr. Pinedo and this note is written on his behalf. <Sahil Delvalle - Last Filed: 07/30/18 14:13> (1) Ulcerative colitis without complications Status: Acute Code(s): K51.90 - Ulcerative colitis, unspecified, without complications - Attending Attestation Seen and examined, plan as above. Will continue current treatment plan. Further recommendations to follow. <Karson Pinedo - Last Filed: 07/30/18 15:38> <Sahil Delvalle - Last Filed: 07/30/18 14:13> (1) Ulcerative colitis without complications Qualifiers: Ulcerative colitis location: unspecified ulcerative colitis location Qualified Code(s): K51.90 - Ulcerative colitis, unspecified, without complications <Karson Pinedo - Last Filed: 07/30/18 15:38> (1) Ulcerative colitis without complications Qualifiers: Ulcerative colitis location: unspecified ulcerative colitis location Qualified Code(s): K51.90 - Ulcerative colitis, unspecified, without complications
[2018-07-31] MEDS: Acetaminophen 325 MG Tablet PO PRN (00:24)
[2018-07-31] MEDS: Mesalamine 800 MG Tablet DR PO SCH ×4 (00:24→23:50)
[2018-07-31] MEDS: Sod Chloride 0.9% Inj 1,000 ML IV.CONT SCH ×3 (00:25→18:29)
[2018-07-31] MEDS: MethylPREDNISolone Sod Succinate Inj 40 MG/ML Vial IV.PUSH SCH ×3 (02:02→17:21)
[2018-07-31 05:32] LABS: Baso % (Auto) 0.1 % (0.0-2.0); Hematocrit 33.8 % (39.0-51.0); Hemoglobin 11.1 gm/dL (13.0-17.0); Lymph # (Auto) 1.3 th/mm3 (1.0-4.8); Lymph % (Auto) 8.3 % (9.0-44.0); Mean Corpuscular HGB Conc 32.9 % (32.0-36.0); Mean Corpuscular Hemoglobin 28.3 pg (27.0-34.0); Mean Corpuscular Volume 86.1 fL (80.0-100.0); Mean Platelet Volume 8.8 fL (7.0-11.0); Mono # (Auto) 0.9 th/mm3 (0.0-0.9); Mono % (Auto) 5.5 % (0.0-8.0); Neut # (Auto) 13.4 th/mm3 (1.8-7.7); Neut % (Auto) 86.1 % (16.0-70.0); Platelet Count 445 th/mm3 (150-450); Red Blood Count 3.92 mil/mm3 (4.50-5.90); White Blood Count 15.5 th/mm3 (4.0-11.0)
[2018-07-31 05:56] LABS: Anion Gap 6 meq/L (5-15); Blood Urea Nitrogen 8 mg/dL (7-18); Calcium 8.1 mg/dL (8.5-10.1); Carbon Dioxide 25.7 meq/L (21.0-32.0); Chloride 108 meq/L (98-107); Glomerular Filtration Rate Greater Than 89 mL/min (>89); Glucose,Random 142 mg/dL (74-106); Potassium 3.8 meq/L (3.5-5.1); Sodium 140 meq/L (136-145)
--- NOTE | 2018-07-31 10:27 | P.PNIM ---
Subjective Interval history: DRAFT NOTE Pt reports blood bowel movement with abdominal pain overnight, around 2AM. Pt able to tolerate liquid diet at breakfast. Pt denies fever, but c/o night sweats which started on admission. Physical Exam Vital signs: Last Vital Signs Temp 98.1 F 07/31/18 08:00 Pulse 61 07/31/18 08:00 Resp 17 07/31/18 08:00 BP 97/52 L 07/31/18 08:00 Pulse Ox 98 07/31/18 08:00 Narrative: GENERAL: This is a well-nourished, well-developed patient CARDIOVASCULAR: Regular rate and rhythm RESPIRATORY: Clear to auscultation. Breath sounds equal bilaterally. GASTROINTESTINAL: Abdomen soft, tender LLQ and epigastric area, nondistended. hyperactive active bowel sounds MUSCULOSKELETAL: Extremities without clubbing, cyanosis, or edema. NEURO: Alert & Oriented x4 to person, place, time, situation. Moves all ext x4 Results Labs CBC & Chem 7: 07/31/18 04:21 07/31/18 04:21 Assessment and Plan Assessment (1) Ulcerative colitis without complications: Code(s): K51.90 - Ulcerative colitis, unspecified, without complications Status: Acute Plan Ulcerative colitis - Pt is a 27 y/o man with Ulcerative colitis, and hx of viral meningitis and C Diff in 2015. He was originally diagnosed with UC in 2009 and was taking Asacol and 6-MP since 2009. Patient reported that he had seen Dr. Reyes in mid June and requested to be taken off the 6-MP. He then began having his current ulcerative colitis flare since approximately July 02. Patient was seen 07/18/18 in the ED and prescribed Cipro, Flagyl and prednisone. Patient reports he stopped taking the Cipro and Flagyl once he was told that his C diff testing was negative. Patient only took the Cipro and Flagyl for two days. Patient continued to take the prednisone with no relief. Patient spoke with Dr. Rowell outpatient and was instructed to go to the ER for further evaluation. When he is not flaring he averages about 4 BMs per day. He is now having approximately 16 bloody loose BMs a day. Patient also reports left lower quadrant pain and pain across his upper abdomen and had reported N/V and chills prior to admission. - Comgmt with Gastroenterology - stool studies (07/29/18) - NO enteric pathogens - rare WBC - crytosporidum pending - giardia antigen pending - CT A/P (07/18/18) - 1. Abnormal appearance to the colon from the mid transverse colon down to the distal sigmoid colon with some induration of the pericolonic fat, wall thickening, and loss of haustration. Differential considerations include ulcerative colitis and infectious colitis. - CXR (07/28/18) - no acute process - IV solumedrol 40mg q8h (07/29 - present) - Asacol 1600mg TID (07/30 - present). Increased from home dose of 800mg TID - IVFs, NS at 100ml/hr - zofran prn - consider restarting mercaptopurine. Will defer to GI - tolerating liquid diet - Hg 11.2 (07/30), 11.1 (07/31) - Colonoscopy for tomorrow (08/01) - DVT prophylaxis with SCDs - supportive care Progress Note: Quality VTE Deep Vein Thrombosis/Pulmonary Embolism Present on Admission: No _ (1) Ulcerative colitis without complications Qualifiers: Ulcerative colitis location: unspecified ulcerative colitis location Qualified Code(s): K51.90 - Ulcerative colitis, unspecified, without complications
--- NOTE | 2018-07-31 14:19 | P.PNGI ---
Subjective Interval history: Patient sitting up in bed awake and alert Mom visiting at bedside Patient reports less frequency bowel movements however states moderate amount of bleeding noted intermittent States stools are forming continues to have lower abdominal pain with each bowel movement Plan colonoscopy tomorrow <Ileana Bills - Last Filed: 07/31/18 14:15> Physical Exam Vital signs: Vital Signs 07/30/18 16:00 07/30/18 20:00 07/30/18 23:47 Temperature 98.7 F 98.4 F Pulse Rate 75 76 73 Respiratory Rate 16 17 16 Blood Pressure 120/62 118/56 L 116/55 L Pulse Oximetry 97 97 96 07/31/18 02:20 07/31/18 05:15 07/31/18 08:00 Temperature 98.1 F 98.0 F 98.1 F Pulse Rate 74 57 L 61 Respiratory Rate 18 19 17 Blood Pressure 114/57 L 105/55 L 97/52 L Pulse Oximetry 97 97 98 07/31/18 11:47 Temperature 97.7 F Pulse Rate 61 Respiratory Rate 18 Blood Pressure 109/60 Pulse Oximetry 99 Intake & Output 07/30/18 07/31/18 07/31/18 18:59 06:59 18:59 Intake Total 3860 / 3860 120 / 120 Balance 3860 / 3860 120 / 120 Intake: IV 1999 NS Inj 1,000 ML @ 100 mls/hr IV 1999 .CONT .Q10H [facility] Rx#:[id number] Oral 360 / 360 120 / 120 Other 1500 / 1500 Other: Other Intake Source Saline Solution # Voids 4 0 Date of Last Bowel Movement 07/30/18 07/30/18 07/30/18 # Bowel Movements 0 - Constitutional no acute distress - Routine HEENT Exam Head: Present: normocephalic - Routine Respiratory Exam Present: CTA bilaterally. Absent: accessory muscle use - Routine Cardiovascular Exam Present: RRR - Routine Abdominal Exam Present: soft, normoactive bowel sounds, tenderness. Absent: distended, guarding, firm - Routine Skin Exam Present: dry, warm - Routine Neurological Exam Present: alert - Routine Psychiatric Exam Present: normal affect, cooperative <Ileana Bills - Last Filed: 07/31/18 14:15> Vital signs: Vital Signs 07/30/18 20:00 07/30/18 23:47 07/31/18 02:20 Temperature 98.7 F 98.4 F 98.1 F Pulse Rate 76 73 74 Respiratory Rate 17 16 18 Blood Pressure 118/56 L 116/55 L 114/57 L Pulse Oximetry 97 96 97 07/31/18 05:15 07/31/18 08:00 07/31/18 11:47 Temperature 98.0 F 98.1 F 97.7 F Pulse Rate 57 L 61 61 Respiratory Rate 19 17 18 Blood Pressure 105/55 L 97/52 L 109/60 Pulse Oximetry 97 98 99 07/31/18 15:59 Temperature 98.2 F Pulse Rate 65 Respiratory Rate 18 Blood Pressure 115/59 L Pulse Oximetry 97 Intake & Output 07/30/18 07/31/18 07/31/18 18:59 06:59 18:59 Intake Total 3860 / 3860 120 / 120 Balance 3860 / 3860 120 / 120 Intake: IV 1999 NS Inj 1,000 ML @ 100 mls/hr IV 1999 .CONT .Q10H [facility] Rx#:[id number] Oral 360 / 360 120 / 120 Other 1500 / 1500 Other: Other Intake Source Saline Solution # Voids 4 0 Date of Last Bowel Movement 07/30/18 07/30/18 07/30/18 # Bowel Movements 0 <Karson Pinedo A - Last Filed: 07/31/18 16:39> Results - Labs CBC & Chem 7: 07/31/18 04:21 07/31/18 04:21 Laboratory Results - last 24 hr 07/31/18 07/31/18 04:21 04:21 WBC 15.5 H D RBC 3.92 L Hgb 11.1 L Hct 33.8 L MCV 86.1 MCH 28.3 MCHC 32.9 RDW 14.0 Plt Count 445 MPV 8.8 Neut % (Auto) 86.1 H Lymph % (Auto) 8.3 L [place] % (Auto) 5.5 Eos % (Auto) 0.0 Baso % (Auto) 0.1 Neut # (Auto) 13.4 H Lymph # (Auto) 1.3 [place] # (Auto) 0.9 Eos # (Auto) 0.0 Baso # (Auto) 0.0 WBC Differential . Differential Comment Auto diff final Sodium 140 Potassium 3.8 Chloride 108 H Carbon Dioxide 25.7 Anion Gap 6 BUN 8 Creatinine 0.68 Estimated GFR Greater than 89 Random Glucose 142 H Calcium 8.1 L Microbiology 07/29/18 19:09 Stool Cryptosporidium Antigen - Final Negative - No Cryptosporicium antigen detected In selected cases of patients with a history of immunosuppression or foreign travel, a full ova and parasites examination may be desired. Contact the microbiology lab if full workup is indicated and subit another specimen for testing. 07/29/18 19:09 Stool Giardia Antigen ([facility]) - Final Negative - No Giardia Antigen detected In selected cases of patients with a history of immunosuppression or foreign travel, a full ova and parasites examination may be desired. Contact the microbiology lab if full workup is indicated and subit another specimen for testing. 07/29/18 19:09 Stool Enteric Pathogens (PCR) - Final No enteric pathogens detected by PCR (No Salmonella sp., Shigella sp., Campylobacter sp., Yersinia enterocolitica, Vibrio sp., Norovirus, or EHEC (Shiga Toxin 1 or Shiga Toxin 2) detected. 07/29/18 19:09 Stool Stool for WBCs - Final Rare WBC's <Ileana Bills - Last Filed: 07/31/18 14:15> - Labs CBC & Chem 7: 07/31/18 04:21 07/31/18 04:21 Laboratory Results - last 24 hr 07/31/18 07/31/18 04:21 04:21 WBC 15.5 H D RBC 3.92 L Hgb 11.1 L Hct 33.8 L MCV 86.1 MCH 28.3 MCHC 32.9 RDW 14.0 Plt Count 445 MPV 8.8 Neut % (Auto) 86.1 H Lymph % (Auto) 8.3 L [place] % (Auto) 5.5 Eos % (Auto) 0.0 Baso % (Auto) 0.1 Neut # (Auto) 13.4 H Lymph # (Auto) 1.3 [place] # (Auto) 0.9 Eos # (Auto) 0.0 Baso # (Auto) 0.0 WBC Differential . Differential Comment Auto diff final Sodium 140 Potassium 3.8 Chloride 108 H Carbon Dioxide 25.7 Anion Gap 6 BUN 8 Creatinine 0.68 Estimated GFR Greater than 89 Random Glucose 142 H Calcium 8.1 L Microbiology 07/29/18 19:09 Stool Cryptosporidium Antigen - Final Negative - No Cryptosporicium antigen detected In selected cases of patients with a history of immunosuppression or foreign travel, a full ova and parasites examination may be desired. Contact the microbiology lab if full workup is indicated and subit another specimen for testing. 07/29/18 19:09 Stool Giardia Antigen (REY) - Final Negative - No Giardia Antigen detected In selected cases of patients with a history of immunosuppression or foreign travel, a full ova and parasites examination may be desired. Contact the microbiology lab if full workup is indicated and subit another specimen for testing. 07/29/18 19:09 Stool Enteric Pathogens (PCR) - Final No enteric pathogens detected by PCR (No Salmonella sp., Shigella sp., Campylobacter sp., Yersinia enterocolitica, Vibrio sp., Norovirus, or EHEC (Shiga Toxin 1 or Shiga Toxin 2) detected. <Karson Pinedo - Last Filed: 07/31/18 16:39> Assessment and Plan (1) Ulcerative colitis without complications Status: Acute Code(s): K51.90 - Ulcerative colitis, unspecified, without complications - Plan This patient is a 27-year-old white male with past medical history significant for ulcerative colitis. Patient [facility] with complaint of cough, vomiting and abdominal pain. Patient also endorses 10 days onset of bloody diarrhea. Patient reports that he was taken off mercaptopurine by on 06/27/2018. At that time, he began to have abdominal pain with bloody diarrhea that caused him to visit the ER after being discharged from the emergency room, he was placed on antibiotics and prednisone but states he stopped taking antibiotics 2 days after being discharged because his stool sample came back negative for C. difficile. Patient endorses that he has lost 20 pounds in the last 2 weeks. He describes his abdominal pain is sharp and dull. He states that all the left upper quadrant radiating down towards left lower quadrant where pain becomes sharp. Patient endorses generalized abdominal sharp pain with when having a bowel movement. Patient states that bowel movements have been loose and watery with dark red clumps of blood patient denies any vomiting or coffee-ground emesis. Upon consultation, patient reports that he is able to tolerate soups with small amount of starches. Patient is stools as bright brown to yellow in color with dark limbs on blood. Patient does state that he has had occasional episodes of vomiting but does not attribute this to nausea. He states vomiting accompanies bowel movements and he feels this is due to increased pain. Patient states last colonoscopy done in 2009 when he was diagnosed with ulcerative colitis. Patient states family history significant for a paternal aunt who has been diagnosed with ulcerative colitis. Patient denies any use of tobacco or alcohol products. Ulcerative colitis flare/bloody diarrhea Patient taken off mercaptopurine on 06/27/2018. At that time he began to have abdominal pain with bloody diarrhea. Patient was then placed on antibiotics and prednisone. C. difficile stool specimen negative as per patient. Patient reports 20 pound weight loss in the last 2 weeks. , last colonoscopy was in 2009, pt was diagnosed with UC [place] 2005 CT on 07/18/18 showed abnormal appearance to the colon from the mid transverse colon down to the distal sigmoid colon with some induration the pericolonic fat, wall thickening, and loss of haustration. hgb today is 11.2 Discussed colonoscopy with pt and mom, but would like to have done on Saturday07/31/2018 Ulcerative colitis/bloody stools Patient reporting less frequent stools. States intermittent periods of blood noted in stool. Plan colonoscopy for tomorrow with GoLYTELY prep today. WBC 15.5 hemoglobin 11.1 hematocrit 33.8 Plan -Clear liquid diet today -N.p.o. after midnight -Colonoscopy planned for tomorrow -Continue IV steroids -Analgesia and antiemetics as per attending -Mesalamine -Continue IV hydration -Supportive care -Further recommendations to follow This patient has been seen by myself and Dr. Pinedo and this note is written on his behalf - Attending Attestation Dr. Pinedo <Ileana Bills - Last Filed: 07/31/18 14:15> (1) Ulcerative colitis without complications Status: Acute Code(s): K51.90 - Ulcerative colitis, unspecified, without complications - Attending Attestation Seen and examined, plan as above. Will proceed with Colonoscopy in AM. Further recommendations to follow. <Karson Pinedo - Last Filed: 07/31/18 16:39> <SanjuIleana - Last Filed: 07/31/18 14:15> (1) Ulcerative colitis without complications Qualifiers: Ulcerative colitis location: unspecified ulcerative colitis location Qualified Code(s): K51.90 - Ulcerative colitis, unspecified, without complications <Karson Pinedo - Last Filed: 07/31/18 16:39> (1) Ulcerative colitis without complications Qualifiers: Ulcerative colitis location: unspecified ulcerative colitis location Qualified Code(s): K51.90 - Ulcerative colitis, unspecified, without complications
--- NOTE | 2018-07-31 15:57 | P.DIET ---
Nutritional Evaluation Type of nutrition evaluation: initial Nutrition consult regarding: Diet Evaluation Nutrition screening: MDC (diet education) Screening comments: 07/31 MDC for diet education Assessment Assessment: MDC for diet education received on 07/29. Pt had questions on his diet r/t ulcerative colitis. RD provided printed materials for the FODMAP diet for pt. Pt was positive, attentive, and asked questions. Pt mentioned he cut out trigger foods like dairy products and some vegetables . Pt was satisfied w/ his individualized diet for now. Consult RD if additional questions/concerns arises. Recommendations: Consult RD if additional questions/concerns arises. Dietitian to Monitor: Lab values, Intake & Output, Diet tolerance, Medical course
[2018-07-31] MEDS ORDERED: PEG 3350/E-Lyte Soln 4000 ML Bottle PO ONE (16:00)
[2018-08-01] MEDS ORDERED: Chlorhexidine Gluconate 2% 1 Pack (2 Cloths) TOPICAL ONE (01:03)
[2018-08-01] MEDS ORDERED: Sodium Chlor 0.9% Inj 500 ML IV.SIG SCH (02:00)
[2018-08-01] MEDS: MethylPREDNISolone Sod Succinate Inj 40 MG/ML Vial IV.PUSH SCH ×3 (02:09→18:53)
[2018-08-01] MEDS: Sod Chloride 0.9% Inj 1,000 ML IV.CONT SCH ×3 (02:45→14:00)
[2018-08-01 06:05] LABS: Baso % (Auto) 0.1 % (0.0-2.0); Hematocrit 33.8 % (39.0-51.0); Hemoglobin 11.4 gm/dL (13.0-17.0); Lymph # (Auto) 1.4 th/mm3 (1.0-4.8); Lymph % (Auto) 14.3 % (9.0-44.0); Mean Corpuscular HGB Conc 33.7 % (32.0-36.0); Mean Corpuscular Volume 86.3 fL (80.0-100.0); Mean Platelet Volume 8.6 fL (7.0-11.0); Mono # (Auto) 0.6 th/mm3 (0.0-0.9); Mono % (Auto) 5.7 % (0.0-8.0); Neut % (Auto) 79.9 % (16.0-70.0); Platelet Count 415 th/mm3 (150-450); Red Blood Count 3.92 mil/mm3 (4.50-5.90); Red Cell Distribution Width 14.3 % (11.6-17.2)
[2018-08-01 06:25] LABS: Anion Gap 5 meq/L (5-15); Blood Urea Nitrogen 8 mg/dL (7-18); Calcium 8.5 mg/dL (8.5-10.1); Carbon Dioxide 28.1 meq/L (21.0-32.0); Chloride 105 meq/L (98-107); Glomerular Filtration Rate Greater Than 89 mL/min (>89); Glucose,Random 113 mg/dL (74-106); Potassium 3.9 meq/L (3.5-5.1); Sodium 138 meq/L (136-145)
[2018-08-01] MEDS: Mesalamine 800 MG Tablet DR PO SCH ×2 (08:59→18:20)
--- NOTE | 2018-08-01 11:23 | P.PNIM ---
Subjective Interval history: Patient with less abd pain today. no further hematochezia some minimal BRBPR yesterday with wiping. Physical Exam Vital signs: Last Vital Signs Temp 97.6 F 08/01/18 08:00 Pulse 59 L 08/01/18 08:00 Resp 18 08/01/18 08:00 BP 111/53 L 08/01/18 08:00 Pulse Ox 96 08/01/18 08:00 Narrative: GENERAL: This is a well-nourished, well-developed patient CARDIOVASCULAR: Regular rate and rhythm RESPIRATORY: Clear to auscultation. Breath sounds equal bilaterally. GASTROINTESTINAL: Abdomen soft, tender LLQ and epigastric area, nondistended. hyperactive active bowel sounds MUSCULOSKELETAL: Extremities without clubbing, cyanosis, or edema. NEURO: Alert & Oriented x4 to person, place, time, situation. Moves all ext x4 Results Labs CBC & Chem 7: 08/04/18 05:36 08/04/18 05:36 Imaging Chest X-Ray 07/28/18 18:16 CONCLUSION: Negative for acute process Assessment and Plan Assessment (1) Ulcerative colitis without complications: Code(s): K51.90 - Ulcerative colitis, unspecified, without complications Status: Acute Plan Ulcerative colitis - Pt is a 27 y/o man with Ulcerative colitis, and hx of viral meningitis and C Diff in 2015. He was originally diagnosed with UC in 2009 and was taking Asacol and 6-MP since 2009. Patient reported that he had seen Dr. Reyes in mid June and requested to be taken off the 6-MP. He then began having his current ulcerative colitis flare since approximately July 02. Patient was seen 07/18/18 in the ED and prescribed Cipro, Flagyl and prednisone. Patient reports he stopped taking the Cipro and Flagyl once he was told that his C diff testing was negative. Patient only took the Cipro and Flagyl for two days. Patient continued to take the prednisone with no relief. Patient spoke with Dr. Rowell outpatient and was instructed to go to the ER for further evaluation. When he is not flaring he averages about 4 BMs per day. He is now having approximately 16 bloody loose BMs a day. Patient also reports left lower quadrant pain and pain across his upper abdomen and had reported N/V and chills prior to admission. - Comgmt with Gastroenterology - stool studies (07/29/18) - NO enteric pathogens - rare WBC - cryptosporidium negative - Giardia antigen negative. - CT A/P (07/18/18) - 1. Abnormal appearance to the colon from the mid transverse colon down to the distal sigmoid colon with some induration of the pericolonic fat, wall thickening, and loss of haustration. Differential considerations include ulcerative colitis and infectious colitis. - CXR (07/28/18) - no acute process - IV solumedrol 40mg q8h (07/29 - present) - Asacol 1600mg TID (07/30 - present). Increased from home dose of 800mg TID - IVFs, NS at 100ml/hr - zofran prn - consider restarting mercaptopurine. Will defer to GI - tolerating liquid diet - Hg 11.2 (07/30), 11.1 (07/31), 11.4 (08/01) - Colonoscopy today - DVT prophylaxis with SCDs - supportive care Attending Attestation The exam, history, and the medical decision-making described in the above note were completed with the assistance of the mid-level provider. I reviewed and agree with the findings presented. I attest that I had a [id number] encounter with the patient on the same day, and personally performed and documented my assessment and findings in the medical record. Patient examined. Assessment and plan formulated with Shannan Moy PA-C. I agree with the above. Progress Note: Quality VTE Deep Vein Thrombosis/Pulmonary Embolism Present on Admission: No _ (1) Ulcerative colitis without complications Qualifiers: Ulcerative colitis location: unspecified ulcerative colitis location Qualified Code(s): K51.90 - Ulcerative colitis, unspecified, without complications
--- NOTE | 2018-08-01 17:30 | GIPROC ---
[facility] [address] [facility]. [facility], [address] COLONOSCOPY PROCEDURE REPORT EXAM DATE: 08/01/2018 PATIENT NAME: Yoav Reaves MR #: [id number] BIRTHDATE: 1990 ENDOSCOPIST: Karson Pinedo MD ORDER #: [id number] AUTOMOTIVE REFINISH TECHNICIAN: Suzy Da Silva and Sri Corea STATUS: inpatient INDICATIONS: The patient is a 27 yr old male here for a colonoscopy due to follow up for previously diagnosed pancolitis ulcerative colitis PROCEDURE PERFORMED: Colonoscopy with biopsy MEDICATIONS: Per Anesthesia and None. PREP QUALITY: fair PREP TYPE:GoLytely ESTIMATED BLOOD LOSS: None CONSENT: The patient understands the risks and benefits of the procedure and understands that these risks include, but are not limited to: sedation, allergic reaction, infection, perforation and/or bleeding. Alternative means of evaluation and treatment include, among others: physical exam, x-rays, and/or surgical intervention. The patient elects to proceed with this endoscopic procedure. medical equipment was checked for proper function. Hand hygiene and appropriate measures for infection prevention was taken. After the risks, benefits and alternatives of the procedure were thoroughly explained, Informed consent was verified, confirmed and timeout was successfully executed by the treatment team. A digital exam revealed no abnormalities of the rectum The Pentax [id number] endoscope was introduced through the anus and advanced to the cecum, which was identified by both the appendix and ileocecal valve. The instrument was then slowly withdrawn as the colon was fully examined. COLON FINDINGS: Mucosal ulceration with bleeding, continuous across the area examined, was present throughout the entire examined colon. Multiple biopsies of the lesion were performed using cold forceps. Multiple medium sized non-bleeding non-bleeding, shallow and clean-based ulcers with heaped up edges were found in the ascending colon. Biopsies were taken at edge of the ulcers and at the center of the ulcers. Retroflexion was not performed The scope was then completely withdrawn from the patient and the procedure terminated. PROCEDURE WITHDRAWAL TIME:8minutes ADVERSE EVENTS: There were no complications. IMPRESSIONS: 1. Mucosal ulceration with bleeding throughout the entire examined colon; multiple biopsies of the lesion were performed , severe ulcerative pancolitis. 2. Multiple medium sized non-bleeding ulcers were found in the ascending colon; biopsies were taken 3. Retroflexion was not performed RECOMMENDATIONS: Await biopsy results. Biopsy results will not be ready for 7-10 days. If you don't hear from us in two weeks, call our office for results. RECALL: NONE Karson Pinedo MD eSigned: Karson Pinedo MD 08/01/2018 5:30 PM cc: PATIENT NAME: Yoav Reaves MR#: [id number]
[2018-08-01] MEDS: Acetaminophen 325 MG Tablet PO PRN (22:30)
[2018-08-02] MEDS: Mesalamine 800 MG Tablet DR PO SCH ×3 (00:51→18:01)
[2018-08-02] MEDS: MethylPREDNISolone Sod Succinate Inj 40 MG/ML Vial IV.PUSH SCH ×3 (02:34→18:01)
[2018-08-02] MEDS: Acetaminophen 325 MG Tablet PO PRN ×3 (06:22→21:46)
[2018-08-02] MEDS: Sod Chloride 0.9% Inj 1,000 ML IV.CONT SCH ×3 (08:18→20:51)
--- NOTE | 2018-08-02 10:15 | P.PNIM ---
Subjective Interval history: S/P colonoscopy 08/01 patient reports small BM earlier today without blood Physical Exam Vital signs: Last Vital Signs Temp 98.3 F 08/02/18 08:00 Pulse 64 08/02/18 08:00 Resp 18 08/02/18 08:00 BP 112/55 L 08/02/18 08:00 Pulse Ox 95 08/02/18 08:00 Narrative: GENERAL: This is a well-nourished, well-developed patient CARDIOVASCULAR: Regular rate and rhythm RESPIRATORY: Clear to auscultation. Breath sounds equal bilaterally. GASTROINTESTINAL: Abdomen soft, tender LLQ and epigastric area, nondistended. hyperactive active bowel sounds MUSCULOSKELETAL: Extremities without clubbing, cyanosis, or edema. NEURO: Alert & Oriented x4 to person, place, time, situation. Moves all ext x4 Results Labs CBC & Chem 7: 08/04/18 05:36 08/04/18 05:36 Assessment and Plan Assessment (1) Ulcerative colitis without complications: Code(s): K51.90 - Ulcerative colitis, unspecified, without complications Status: Acute Plan Ulcerative colitis - Pt is a 27 y/o man with Ulcerative colitis, and hx of viral meningitis and C Diff in 2015. He was originally diagnosed with UC in 2009 and was taking Asacol and 6-MP since 2009. Patient reported that he had seen Dr. Reyes in mid June and requested to be taken off the 6-MP. He then began having his current ulcerative colitis flare since approximately July 02. Patient was seen 07/18/18 in the ED and prescribed Cipro, Flagyl and prednisone. Patient reports he stopped taking the Cipro and Flagyl once he was told that his C diff testing was negative. Patient only took the Cipro and Flagyl for two days. Patient continued to take the prednisone with no relief. Patient spoke with Dr. Rowell outpatient and was instructed to go to the ER for further evaluation. When he is not flaring he averages about 4 BMs per day. He is now having approximately 16 bloody loose BMs a day. Patient also reports left lower quadrant pain and pain across his upper abdomen and had reported N/V and chills prior to admission. - Comgmt with Gastroenterology - stool studies (07/29/18) - NO enteric pathogens - rare WBC - cryptosporidium negative - Giardia antigen negative. - CT A/P (07/18/18) - 1. Abnormal appearance to the colon from the mid transverse colon down to the distal sigmoid colon with some induration of the pericolonic fat, wall thickening, and loss of haustration. Differential considerations include ulcerative colitis and infectious colitis. - CXR (07/28/18) - no acute process - IV solumedrol 40mg q8h (07/29 - present) - Asacol 1600mg TID (07/30 - present). Increased from home dose of 800mg TID - IVFs, NS at 100ml/hr - zofran prn - consider restarting mercaptopurine. Will defer to GI - tolerating liquid diet - Hg 11.2 (07/30), 11.1 (07/31), 11.4 (08/01) - S/P colonoscopy 1. Mucosal ulceration with bleeding throughout the entire examined colon; multiple biopsies of the lesion were performed , severe ulcerative pancolitis. 2. Multiple medium sized non-bleeding ulcers were found in the ascending colon; biopsies were taken 3. Retroflexion was not performed Await biopsy results. - DVT prophylaxis with SCDs - supportive care Attending Attestation The exam, history, and the medical decision-making described in the above note were completed with the assistance of the mid-level provider. I reviewed and agree with the findings presented. I attest that I had a [id number] encounter with the patient on the same day, and personally performed and documented my assessment and findings in the medical record. Patient examined. Assessment and plan formulated with Joan Castillo PA-C. I agree with the above. Progress Note: Quality VTE Deep Vein Thrombosis/Pulmonary Embolism Present on Admission: No _ (1) Ulcerative colitis without complications Qualifiers: Ulcerative colitis location: unspecified ulcerative colitis location Qualified Code(s): K51.90 - Ulcerative colitis, unspecified, without complications
--- NOTE | 2018-08-02 17:13 | P.PNGI ---
Subjective Interval history: Feeling better, only two bloody movements since the colonoscopy. Physical Exam Vital signs: Vital Signs 08/01/18 17:32 08/01/18 20:00 08/01/18 22:30 Temperature 98 F 98.5 F Pulse Rate 67 68 Respiratory Rate 18 18 18 Blood Pressure 108/59 L 121/70 Pulse Oximetry 97 98 08/02/18 00:00 08/02/18 04:00 08/02/18 08:00 Temperature 98.4 F 98.2 F 98.3 F Pulse Rate 77 54 L 64 Respiratory Rate 18 17 18 Blood Pressure 115/63 95/55 L 112/55 L Pulse Oximetry 97 96 95 08/02/18 12:00 08/02/18 16:00 Temperature 98.2 F 98.5 F Pulse Rate 58 L 62 Respiratory Rate 18 18 Blood Pressure 103/58 L 117/58 L Pulse Oximetry 98 97 Intake & Output 08/01/18 08/02/18 08/02/18 18:59 06:59 18:59 Intake Total 1500 / 1500 1000 / 1000 Balance 1500 / 1500 1000 / 1000 Intake: IV 1000 / 1000 1000 / 1000 NS Inj 1,000 ML @ 100 mls/hr IV 1000 / 1000 1000 / 1000 .CONT .Q10H MAKENNA Rx#:[id number] Anesthesia Amount 500 / 500 Other: # Voids 3 Date of Last Bowel Movement 07/31/18 08/02/18 # Bowel Movements 2 Narrative: Pleasant young man, appears stated age. In no acute distress but visibly uncomfortable and in pain. Cardiovascular: Regular heart rate, no rubs, murmurs, or gallops upon auscultation. Respiratory: clear breath sounds, no rales, rhonchi, or wheezing Gastrointestinal: Hypoactive bowel sounds. Soft abdomen, no guarding or distension. Diffuse abdominal tenderness upon palpation, but increased in the epigastric region and lower quadrants. Radha Tadeo, MS3 - Constitutional no acute distress, cooperative - Routine HEENT Exam Head: Present: normocephalic, atraumatic - Routine Neck Exam Present: supple - Routine Respiratory Exam Present: CTA bilaterally - Routine Cardiovascular Exam Present: RRR - Routine Abdominal Exam Present: soft, normoactive bowel sounds - Routine Extremities Exam Present: full ROM, pulses intact - Routine Skin Exam Present: intact - Routine Psychiatric Exam Present: normal affect Results - Labs CBC & Chem 7: 08/01/18 05:18 08/01/18 05:18 Assessment and Plan (1) Ulcerative colitis without complications Status: Acute Code(s): K51.90 - Ulcerative colitis, unspecified, without complications - Plan This patient is a 27-year-old white male with past medical history significant for ulcerative colitis. [facility] with complaint of cough, vomiting and abdominal pain. Patient also endorses 10 days onset of bloody diarrhea. Patient reports that he was taken off mercaptopurine by on 06/27/2018. At that time, he began to have abdominal pain with bloody diarrhea that caused him to visit the ER after being discharged from the emergency room, he was placed on antibiotics and prednisone but states he stopped taking antibiotics 2 days after being discharged because his stool sample came back negative for C. difficile. Patient endorses that he has lost 20 pounds in the last 2 weeks. He describes his abdominal pain is sharp and dull. He states that all the left upper quadrant radiating down towards left lower quadrant where pain becomes sharp. Patient endorses generalized abdominal sharp pain with when having a bowel movement. Patient states that bowel movements have been loose and watery with dark red clumps of blood patient denies any vomiting or coffee-ground emesis. Upon consultation, patient reports that he is able to tolerate soups with small amount of starches. Patient is stools as bright brown to yellow in color with dark limbs on blood. Patient does state that he has had occasional episodes of vomiting but does not attribute this to nausea. He states vomiting accompanies bowel movements and he feels this is due to increased pain. Patient states last colonoscopy done in 2009 when he was diagnosed with ulcerative colitis. Patient states family history significant for a paternal aunt who has been diagnosed with ulcerative colitis. Patient denies any use of tobacco or alcohol products. Ulcerative colitis flare/bloody diarrhea Patient taken off mercaptopurine on 06/27/2018. At that time he began to have abdominal pain with bloody diarrhea. Patient was then placed on antibiotics and prednisone. C. difficile stool specimen negative as per patient. Patient reports 20 pound weight loss in the last 2 weeks. , last colonoscopy was in 2009, pt was diagnosed with UC [place] 2005 CT on 07/18/18 showed abnormal appearance to the colon from the mid transverse colon down to the distal sigmoid colon with some induration the pericolonic fat, wall thickening, and loss of haustration. hgb today is 11.2 15.5 hemoglobin 11.1 hematocrit 33.8 Plan -Diet as tolerated -Await biopsy results. -Continue Solumedrol for another day -Agree with restarting 6MP -Analgesia and antiemetics as per attending -Mesalamine -Continue IV hydration -Supportive care -Further recommendations to follow (1) Ulcerative colitis without complications Qualifiers: Ulcerative colitis location: unspecified ulcerative colitis location Qualified Code(s): K51.90 - Ulcerative colitis, unspecified, without complications
[2018-08-03] MEDS: Mesalamine 800 MG Tablet DR PO SCH ×3 (01:04→15:50)
[2018-08-03] MEDS: MethylPREDNISolone Sod Succinate Inj 40 MG/ML Vial IV.PUSH SCH ×3 (02:00→17:23)
[2018-08-03] MEDS: Acetaminophen 325 MG Tablet PO PRN ×2 (05:18→15:51)
[2018-08-03] MEDS: Sod Chloride 0.9% Inj 1,000 ML IV.CONT SCH (06:48)
--- NOTE | 2018-08-03 15:17 | P.PNIM ---
Subjective Interval history: bloody bowel movements overnight. Physical Exam Vital signs: Last Vital Signs Temp 98.5 F 08/03/18 12:00 Pulse 76 08/03/18 12:00 Resp 19 08/03/18 12:00 BP 118/55 L 08/03/18 12:00 Pulse Ox 97 08/03/18 12:00 Narrative: GENERAL: This is a well-nourished, well-developed patient CARDIOVASCULAR: Regular rate and rhythm RESPIRATORY: Clear to auscultation. Breath sounds equal bilaterally. GASTROINTESTINAL: Abdomen soft, tender LLQ and epigastric area, nondistended. hyperactive active bowel sounds MUSCULOSKELETAL: Extremities without clubbing, cyanosis, or edema. NEURO: Alert & Oriented x4 to person, place, time, situation. Moves all ext x4 Results Labs CBC & Chem 7: 08/04/18 05:36 08/04/18 05:36 Assessment and Plan Assessment (1) Ulcerative colitis without complications: Code(s): K51.90 - Ulcerative colitis, unspecified, without complications Status: Acute Plan Yoav is a 27 year old man with a past medical history which includes Ulcerative colitis, viral meningitis and C Diff 2016. Patient reports he is current he has been having his current ulcerative colitis flare since approximately July 02. Patient was seen 07/18/18 prescribed Cipro, Flagyl and prednisone. Patient was on Mercaptopurine but had stopped mid June. Patient reports he stopped taking the Cipro and Flagyl once he was told that his C diff testing was negative. Patient only took the Cipro and Flagyl for two days. Patient continued to take the prednisone with no relief. Patient spoke with Dr. Rowell outpatient and was instructed to go to the ER for further evaluation. Patient reports that his bloody liquid BMs are getting worse. He is now having approximately 16 bloody loose BMs a day. Patient also reports left lower quadrant pain and pain across his upper abdomen. Patient also reports N/V and chills. Ulcerative colitis - IV solu medrol 40 mg IV Q8H NS at 100ml/H Zofran as needed Liquid diet consult GI HgB on admission 11.6 recheck now and tomorrow AM DVT prophylaxis with SCDs Progress Note: Quality VTE Deep Vein Thrombosis/Pulmonary Embolism Present on Admission: No _ (1) Ulcerative colitis without complications Qualifiers: Ulcerative colitis location: unspecified ulcerative colitis location Qualified Code(s): K51.90 - Ulcerative colitis, unspecified, without complications
--- NOTE | 2018-08-03 19:24 | P.PNGI ---
Subjective Interval history: Still having watery BM's but no blood. Physical Exam Vital signs: Vital Signs 08/02/18 20:00 08/03/18 00:00 08/03/18 08:00 Temperature 98.2 F 98.9 F 97.5 F L Pulse Rate 81 74 67 Respiratory Rate 17 18 19 Blood Pressure 112/57 L 117/60 106/56 L Pulse Oximetry 98 98 98 08/03/18 12:00 08/03/18 16:00 Temperature 98.5 F 98.3 F Pulse Rate 76 77 Respiratory Rate 19 19 Blood Pressure 118/55 L 113/64 Pulse Oximetry 97 96 Intake & Output 08/03/18 08/03/18 08/04/18 06:59 18:59 06:59 Intake Total 1000 / 1000 Balance 1000 / 1000 Intake: IV 1000 / 1000 NS Inj 1,000 ML @ 100 mls/hr IV 1000 / 1000 .CONT .Q10H MAKENNA Rx#:[id number] Other: # Voids 4 Date of Last Bowel Movement 08/02/18 08/02/18 # Bowel Movements 1 Narrative: Pleasant young man, appears stated age. In no acute distress but visibly uncomfortable and in pain. Cardiovascular: Regular heart rate, no rubs, murmurs, or gallops upon auscultation. Respiratory: clear breath sounds, no rales, rhonchi, or wheezing Gastrointestinal: Hypoactive bowel sounds. Soft abdomen, no guarding or distension. Diffuse abdominal tenderness upon palpation, but increased in the epigastric region and lower quadrants. Results - Labs CBC & Chem 7: 08/01/18 05:18 08/01/18 05:18 Assessment and Plan (1) Ulcerative colitis without complications Status: Acute Code(s): K51.90 - Ulcerative colitis, unspecified, without complications - Plan This patient is a 27-year-old white male with past medical history significant for ulcerative colitis. [facility] with complaint of cough, vomiting and abdominal pain. Patient also endorses 10 days onset of bloody diarrhea. Patient reports that he was taken off mercaptopurine by on 06/27/2018. At that time, he began to have abdominal pain with bloody diarrhea that caused him to visit the ER after being discharged from the emergency room, he was placed on antibiotics and prednisone but states he stopped taking antibiotics 2 days after being discharged because his stool sample came back negative for C. difficile. Patient endorses that he has lost 20 pounds in the last 2 weeks. He describes his abdominal pain is sharp and dull. He states that all the left upper quadrant radiating down towards left lower quadrant where pain becomes sharp. Patient endorses generalized abdominal sharp pain with when having a bowel movement. Patient states that bowel movements have been loose and watery with dark red clumps of blood patient denies any vomiting or coffee-ground emesis. Upon consultation, patient reports that he is able to tolerate soups with small amount of starches. Patient is stools as bright brown to yellow in color with dark limbs on blood. Patient does state that he has had occasional episodes of vomiting but does not attribute this to nausea. He states vomiting accompanies bowel movements and he feels this is due to increased pain. Patient states last colonoscopy done in 2009 when he was diagnosed with ulcerative colitis. Patient states family history significant for a paternal aunt who has been diagnosed with ulcerative colitis. Patient denies any use of tobacco or alcohol products. Ulcerative colitis flare/bloody diarrhea Patient taken off mercaptopurine on 06/27/2018. At that time he began to have abdominal pain with bloody diarrhea. Patient was then placed on antibiotics and prednisone. C. difficile stool specimen negative as per patient. Patient reports 20 pound weight loss in the last 2 weeks. , last colonoscopy was in 2009, pt was diagnosed with UC [place] 2005 CT on 07/18/18 showed abnormal appearance to the colon from the mid transverse colon down to the distal sigmoid colon with some induration the pericolonic fat, wall thickening, and loss of haustration. hgb today is 11.2 15.5 hemoglobin 11.1 hematocrit 33.8 Plan -Diet as tolerated -Await biopsy results. -Switch to Prednisone PO -Starting 6MP -Mesalamine -Continue IV hydration -Supportive care -Further recommendations to follow (1) Ulcerative colitis without complications Qualifiers: Ulcerative colitis location: unspecified ulcerative colitis location Qualified Code(s): K51.90 - Ulcerative colitis, unspecified, without complications
[2018-08-04] MEDS: Mesalamine 800 MG Tablet DR PO SCH ×3 (01:00→16:47)
[2018-08-04] MEDS: Acetaminophen 325 MG Tablet PO PRN (01:00)
[2018-08-04] MEDS: MethylPREDNISolone Sod Succinate Inj 40 MG/ML Vial IV.PUSH SCH ×3 (01:00→18:31)
[2018-08-04 06:26] LABS: Baso % (Auto) 0.1 % (0.0-2.0); Hematocrit 37.1 % (39.0-51.0); Lymph % (Auto) 9.5 % (9.0-44.0); Mean Corpuscular HGB Conc 32.4 % (32.0-36.0); Mean Corpuscular Hemoglobin 28.6 pg (27.0-34.0); Mean Corpuscular Volume 88.2 fL (80.0-100.0); Mean Platelet Volume 8.5 fL (7.0-11.0); Mono # (Auto) 0.4 th/mm3 (0.0-0.9); Mono % (Auto) 4.1 % (0.0-8.0); Neut # (Auto) 9.3 th/mm3 (1.8-7.7); Neut % (Auto) 86.3 % (16.0-70.0); Platelet Count 376 th/mm3 (150-450); Red Cell Distribution Width 14.3 % (11.6-17.2); White Blood Count 10.7 th/mm3 (4.0-11.0)
[2018-08-04 06:50] LABS: Anion Gap 9 meq/L (5-15); Blood Urea Nitrogen 9 mg/dL (7-18); Calcium 8.3 mg/dL (8.5-10.1); Carbon Dioxide 24.7 meq/L (21.0-32.0); Chloride 105 meq/L (98-107); Glomerular Filtration Rate Greater Than 89 mL/min (>89); Glucose,Random 141 mg/dL (74-106); Potassium 3.8 meq/L (3.5-5.1); Sodium 139 meq/L (136-145)
--- NOTE | 2018-08-04 14:13 | P.PNIM ---
Subjective Interval history: Pt passed a small amount of blood last night Less abd pain Tolerating his diet without difficulty Physical Exam Vital signs: Last Vital Signs Temp 98.4 F 08/04/18 12:00 Pulse 75 08/04/18 12:00 Resp 16 08/04/18 12:00 BP 117/55 L 08/04/18 12:00 Pulse Ox 97 08/04/18 12:00 Narrative: GENERAL: This is a well-nourished, well-developed patient CARDIOVASCULAR: Regular rate and rhythm RESPIRATORY: Clear to auscultation. Breath sounds equal bilaterally. GASTROINTESTINAL: Abdomen soft, minimal tenderness, nondistended. MUSCULOSKELETAL: Extremities without clubbing, cyanosis, or edema. NEURO: Alert & Oriented x4 to person, place, time, situation. Moves all ext x4 Results Labs CBC & Chem 7: 08/04/18 05:36 08/04/18 05:36 Assessment and Plan Assessment (1) Ulcerative colitis without complications: Code(s): K51.90 - Ulcerative colitis, unspecified, without complications Status: Acute Plan Ulcerative colitis - Pt is a 27 y/o man with Ulcerative colitis, and hx of viral meningitis and C Diff in 2015. He was originally diagnosed with UC in 2009 and was taking Asacol and 6-MP since 2009. Patient reported that he had seen Dr. Reyes in mid June and requested to be taken off the 6-MP. He then began having his current ulcerative colitis flare since approximately July 02. Patient was seen 07/18/18 in the ED and prescribed Cipro, Flagyl and prednisone. Patient reports he stopped taking the Cipro and Flagyl once he was told that his C diff testing was negative. Patient only took the Cipro and Flagyl for two days. Patient continued to take the prednisone with no relief. Patient spoke with Dr. Rowell outpatient and was instructed to go to the ER for further evaluation. When he is not flaring he averages about 4 BMs per day. He is now having approximately 16 bloody loose BMs a day. Patient also reports left lower quadrant pain and pain across his upper abdomen and had reported N/V and chills prior to admission. - Comgmt with Gastroenterology - stool studies (07/29/18) - NO enteric pathogens - rare WBC - cryptosporidium negative - Giardia antigen negative. - CT A/P (07/18/18) - 1. Abnormal appearance to the colon from the mid transverse colon down to the distal sigmoid colon with some induration of the pericolonic fat, wall thickening, and loss of haustration. Differential considerations include ulcerative colitis and infectious colitis. - CXR (07/28/18) - no acute process - IV solumedrol 40mg q8h (07/29 - present) - Asacol 1600mg TID (07/30 - present). Increased from home dose of 800mg TID - Colonoscopy (08/01/18) --> Mucosal ulceration with bleeding throughout the entire examined colon; multiple biopsies of the lesion were performed , severe ulcerative pancolitis. Multiple medium sized non-bleeding ulcers were found in the ascending colon. - 6MP 75mg Daily resumed on 08/03/18 - Anticipate change to oral steroids in the next 1-2 days - Zofran prn - Pt is tolerating regular diet - H/H has been stable. - DVT prophylaxis with SCDs - supportive care Progress Note: Quality VTE Deep Vein Thrombosis/Pulmonary Embolism Present on Admission: No _ (1) Ulcerative colitis without complications Qualifiers: Ulcerative colitis location: unspecified ulcerative colitis location Qualified Code(s): K51.90 - Ulcerative colitis, unspecified, without complications
[2018-08-05] MEDS: MethylPREDNISolone Sod Succinate Inj 40 MG/ML Vial IV.PUSH SCH ×2 (01:04→09:01)
[2018-08-05] MEDS: Mesalamine 800 MG Tablet DR PO SCH ×4 (01:04→23:17)
[2018-08-05] MEDS: Acetaminophen 325 MG Tablet PO PRN ×2 (10:12→22:28)
--- NOTE | 2018-08-05 12:37 | P.PNGI ---
Subjective Interval history: Patient sitting up in bed Mom visiting at bedside Patient reports unchanged discomfort with bowel movements Reports bowel movements soft and formed this a.m. with no bleeding Physical Exam Vital signs: Vital Signs 08/04/18 16:00 08/04/18 21:04 08/05/18 04:52 Temperature 98.3 F 98.8 F 98.1 F Pulse Rate 81 79 65 Respiratory Rate 16 16 16 Blood Pressure 119/58 L 123/66 117/58 L Pulse Oximetry 96 95 97 08/05/18 08:00 Temperature 98.2 F Pulse Rate 63 Respiratory Rate 18 Blood Pressure 115/56 L Pulse Oximetry 97 Intake & Output 08/04/18 08/05/18 08/05/18 18:59 06:59 18:59 Intake Total 720 / 720 Balance 720 / 720 Weight 109.7 kg Intake: Oral 720 / 720 Other: # Voids 3 Date of Last Bowel Movement 08/04/18 08/04/18 08/05/18 # Bowel Movements 0 2 - Constitutional no acute distress - Routine HEENT Exam Head: Present: normocephalic - Routine Respiratory Exam Present: CTA bilaterally - Routine Abdominal Exam Present: soft, normoactive bowel sounds. Absent: tenderness - Routine Skin Exam Present: dry, warm - Routine Psychiatric Exam Present: normal affect, cooperative Results - Labs CBC & Chem 7: 08/04/18 05:36 08/04/18 05:36 Assessment and Plan (1) Ulcerative colitis without complications Status: Acute Code(s): K51.90 - Ulcerative colitis, unspecified, without complications - Plan This patient is a 27-year-old white male with past medical history significant for ulcerative colitis. [facility] complaint of cough, vomiting and abdominal pain. Patient also endorses 10 days onset of bloody diarrhea. Patient reports that he was taken off mercaptopurine by on 06/27/2018. At that time, he began to have abdominal pain with bloody diarrhea that caused him to visit the ER after being discharged from the emergency room, he was placed on antibiotics and prednisone but states he stopped taking antibiotics 2 days after being discharged because his stool sample came back negative for C. difficile. Patient endorses that he has lost 20 pounds in the last 2 weeks. He describes his abdominal pain is sharp and dull. He states that all the left upper quadrant radiating down towards left lower quadrant where pain becomes sharp. Patient endorses generalized abdominal sharp pain with when having a bowel movement. Patient states that bowel movements have been loose and watery with dark red clumps of blood patient denies any vomiting or coffee-ground emesis. Upon consultation, patient reports that he is able to tolerate soups with small amount of starches. Patient is stools as bright brown to yellow in color with dark limbs on blood. Patient does state that he has had occasional episodes of vomiting but does not attribute this to nausea. He states vomiting accompanies bowel movements and he feels this is due to increased pain. Patient states last colonoscopy done in 2009 when he was diagnosed with ulcerative colitis. Patient states family history significant for a paternal aunt who has been diagnosed with ulcerative colitis. Patient denies any use of tobacco or alcohol products. Ulcerative colitis flare/bloody diarrhea Patient taken off mercaptopurine on 06/27/2018. At that time he began to have abdominal pain with bloody diarrhea. Patient was then placed on antibiotics and prednisone. C. difficile stool specimen negative as per patient. Patient reports 20 pound weight loss in the last 2 weeks. , last colonoscopy was in 2009, pt was diagnosed with UC [place] 2005 CT on 07/18/18 showed abnormal appearance to the colon from the mid transverse colon down to the distal sigmoid colon with some induration the pericolonic fat, wall thickening, and loss of haustration. hgb today is 11.2 15.5 hemoglobin 11.1 hematocrit 33.8 08/05/2018 Ulcerative colitis flare Patient reports forming stools. BM x1 this a.m. without any noted bleeding per patient. Denies any nausea and vomiting. States tolerating diet well. 08/04/2018 WBC 10.7 hemoglobin 12.0 hematocrit 37.1 Plan -Diet as tolerated -Avoid milk products -Await biopsy pathology -Prednisone p.o. -Starting 6MP -Continue mesalamine -Supportive care -Patient agrees to follow-up with advanced gastro post discharge for further management of ulcerative colitis flare, prednisone taper and biopsy results -GI will sign off at this time, please notify for any further needs This patient has been seen by myself and Dr. Painter and this note is written on his behalf - Attending Attestation onelia (1) Ulcerative colitis without complications Qualifiers: Ulcerative colitis location: unspecified ulcerative colitis location Qualified Code(s): K51.90 - Ulcerative colitis, unspecified, without complications
--- NOTE | 2018-08-05 14:09 | P.PNIM ---
Subjective Interval history: Pt had a small formed stool this morning. No further bleeding Some abdominal bloating but no pain Tolerating oral intake. Physical Exam Vital signs: Last Vital Signs Temp 98.2 F 08/05/18 08:00 Pulse 63 08/05/18 08:00 Resp 18 08/05/18 08:00 BP 115/56 L 08/05/18 08:00 Pulse Ox 97 08/05/18 08:00 Narrative: GENERAL: This is a well-nourished, well-developed patient CARDIOVASCULAR: Regular rate and rhythm RESPIRATORY: Clear to auscultation. Breath sounds equal bilaterally. GASTROINTESTINAL: Abdomen soft, nontender, nondistended. MUSCULOSKELETAL: Extremities without clubbing, cyanosis, or edema. NEURO: Alert & Oriented x4 to person, place, time, situation. Moves all ext x4 Results Labs CBC & Chem 7: 08/04/18 05:36 08/04/18 05:36 Imaging Chest X-Ray 07/28/18 18:16 CONCLUSION: Negative for acute process Assessment and Plan Assessment (1) Ulcerative colitis without complications: Code(s): K51.90 - Ulcerative colitis, unspecified, without complications Status: Acute Plan Ulcerative colitis - Pt is a 27 y/o man with Ulcerative colitis, and hx of viral meningitis and C Diff in 2015. He was originally diagnosed with UC in 2009 and was taking Asacol and 6-MP since 2009. Patient reported that he had seen Dr. Reyes in mid June and requested to be taken off the 6-MP. He then began having his current ulcerative colitis flare since approximately July 02. Patient was seen 07/18/18 in the ED and prescribed Cipro, Flagyl and prednisone. Patient reports he stopped taking the Cipro and Flagyl once he was told that his C diff testing was negative. Patient only took the Cipro and Flagyl for two days. Patient continued to take the prednisone with no relief. Patient spoke with Dr. Rowell outpatient and was instructed to go to the ER for further evaluation. When he is not flaring he averages about 4 BMs per day. He is now having approximately 16 bloody loose BMs a day. Patient also reports left lower quadrant pain and pain across his upper abdomen and had reported N/V and chills prior to admission. - Comgmt with Gastroenterology - stool studies (07/29/18) - NO enteric pathogens - rare WBC - cryptosporidium negative - Giardia antigen negative. - CT A/P (07/18/18) - 1. Abnormal appearance to the colon from the mid transverse colon down to the distal sigmoid colon with some induration of the pericolonic fat, wall thickening, and loss of haustration. Differential considerations include ulcerative colitis and infectious colitis. - CXR (07/28/18) - no acute process - IV solumedrol 40mg q8h (07/29 - 08/05) - Asacol 1600mg TID (07/30 - present). Increased from home dose of 800mg TID - Colonoscopy (08/01/18) --> Mucosal ulceration with bleeding throughout the entire examined colon; multiple biopsies of the lesion were performed , severe ulcerative pancolitis. Multiple medium sized non-bleeding ulcers were found in the ascending colon. - 6MP 75mg Daily resumed on 08/03/18 - Stop Solu-Medrol and start Prednisone 40mg daily in AM - Anticipate d/c likely tomorrow. - Zofran prn - Pt is tolerating regular diet - H/H has been stable. - DVT prophylaxis with SCDs - supportive care Progress Note: Quality VTE Deep Vein Thrombosis/Pulmonary Embolism Present on Admission: No _ (1) Ulcerative colitis without complications Qualifiers: Ulcerative colitis location: unspecified ulcerative colitis location Qualified Code(s): K51.90 - Ulcerative colitis, unspecified, without complications
[2018-08-06] MEDS: Mesalamine 800 MG Tablet DR PO SCH ×2 (08:06→16:30)
[2018-08-06] MEDS ORDERED: predniSONE 20 MG Tablet PO ONE (08:45)
[2018-08-06] MEDS ORDERED: predniSONE 20 MG Tablet PO SCH (09:00)
--- NOTE | 2018-08-06 09:44 | P.DS ---
DS: Providers Date of admission: 07/28/18 19:50 Primary care physician: Zandra Otero MD Consults: 07/28/18 19:48 Consult to Gastroenterology Routine Consulting Provider: Karson Pinedo Reason for Consultation: ulcerative colitis flare Notified:: Service Spoke with:: jose Date Notified:: 07/28/18 Time Notified:: 20:38 Ordering Provider: LASHONDA Brief History from admission: Yoav is a 27 year old man with a past medical history which includes Ulcerative colitis Dx at age 15, viral meningitis and C Diff 2015. Patient reports he is current he has been having his current ulcerative colitis flare since approximately July 02. Patient was on Mercaptopurine but had stopped mid June. Patient was seen 07/18/18 prescribed Cipro, Flagyl and prednisone. Patient reports he stopped taking the Cipro and Flagyl once he was told that his C diff testing was negative. Patient only took the Cipro and Flagyl for two days. Patient continued to take the prednisone with no relief. Patient spoke with Dr. Rowell outpatient and was instructed to go to the ER for further evaluation. Patient reports that his bloody liquid BMs are getting worse. He is now having approximately 16 bloody loose BMs a day. Patient also reports dull aching pain across his left lower quadrant and pain across his upper abdomen. Patient also reports N/V and chills. Patient has been able to take minimal PO intake and reports feeling weak. PMH: Ulcerative colitis; diagnosed 2006 Viral Meningitis (hospitalized 2016) C. Difficile (hospitalized 2016) PSHx: None Procedures: EGD, colonoscopy Medications: Home: Mesalamine 800 mg PO BID Social Hx: has a PHD in chiropractic medicine lives at home with his parents Never smoker, never drank alcohol Allergies: NKDA Family History: Paternal aunt with ulcerative colitis DS: Diagnosis Discharge Diagnosis (1) Ulcerative colitis: Status: Acute DS: Summary Ulcerative colitis - Pt is a 27 y/o man with Ulcerative colitis, and hx of viral meningitis and C Diff in 2015. He was originally diagnosed with UC in 2009 and was taking Asacol and 6-MP since 2009. Patient reported that he had seen Dr. Reyes in mid June and requested to be taken off the 6-MP. He then began having his current ulcerative colitis flare since approximately July 02. Patient was seen 07/18/18 in the ED and prescribed Cipro, Flagyl and prednisone. Patient reports he stopped taking the Cipro and Flagyl once he was told that his C diff testing was negative. Patient only took the Cipro and Flagyl for two days. Patient continued to take the prednisone with no relief. Patient spoke with Dr. Rowell outpatient and was instructed to go to the ER for further evaluation. When he is not flaring he averages about 4 BMs per day. He is now having approximately 16 bloody loose BMs a day. Patient also reports left lower quadrant pain and pain across his upper abdomen and had reported N/V and chills prior to admission. - Comgmt with Gastroenterology - stool studies (07/29/18) - NO enteric pathogens - rare WBC - cryptosporidium negative - Giardia antigen negative. - CT A/P (07/18/18) - 1. Abnormal appearance to the colon from the mid transverse colon down to the distal sigmoid colon with some induration of the pericolonic fat, wall thickening, and loss of haustration. Differential considerations include ulcerative colitis and infectious colitis. - CXR (07/28/18) - no acute process - IV solumedrol 40mg q8h (07/29 - 08/05) - Asacol 1600mg TID (07/30 - present). Increased from home dose of 800mg TID - Colonoscopy (08/01/18) --> Mucosal ulceration with bleeding throughout the entire examined colon; multiple biopsies of the lesion were performed , severe ulcerative pancolitis. Multiple medium sized non-bleeding ulcers were found in the ascending colon. - 6MP 75mg Daily resumed on 08/03/18 - Stop Solu-Medrol and start Prednisone 40mg daily in AM - Zofran prn - Pt is tolerating regular diet - H/H has been stable. - DVT prophylaxis with SCDs - supportive care Time Spent with Patient Total time spent providing and/or coordinating discharge services: Quality: VTE Deep Vein Thrombosis/Pulmonary Embolism Present on Admission: No Exam Narrative Exam Narrative: GENERAL: This is a well-nourished, well-developed patient, in no apparent distress. CARDIOVASCULAR: Regular rate and rhythm without murmurs, gallops, or rubs. RESPIRATORY: Clear to auscultation. Breath sounds equal bilaterally. No wheezes , rales, or rhonchi. GASTROINTESTINAL: Abdomen soft, non-tender, nondistended. Normal active bowel sounds MUSCULOSKELETAL: Extremities without clubbing, cyanosis, or edema. NEURO: Alert & Oriented x4 to person, place, time, situation. Moves all ext x4 Results Completed studies during hospitalization: Pending at discharge 08/01/18 07:24 Surgical [PTH] Routine Impressions ITS Impressions Chest X-Ray 07/28/18 18:16 CONCLUSION: Negative for acute process Discharge Plan Discharge Disposition Patient Disposition: 01 Discharge Home Discharge Condition Condition: Stable Discharge Order Discharge Orders: Discharge Order (Routine); Ordered 08/06/18 Ordered By: Joan Castillo Discharge Details Anticipated Discharge Date: 08/06/18 Physicians Team ED Provider: Francisco Sheldon Primary Care Provider: Zandra Otero Attending Provider: Isac Marshall Other Providers: Karson Pinedo Rxs /Orders / Referrals /Forms Prescriptions: New prednisone 20 mg tablet 40 mg PO DAILY 14 Days Qty: 28 RF: 0 mesalamine 800 mg Tablet,Delayed Release (Dr/Ec) 1,600 mg PO Q8H 30 Days Qty: 180 RF: 0 Continue mercaptopurine 50 mg Tablet 75 mg PO DAILY RF: 0 Discontinued mesalamine [Asacol HD] 800 mg Tablet,Delayed Release (Dr/Ec) 800 mg PO BID RF: 0 ondansetron [Zofran ODT] 4 mg tablet,disintegrating 4 mg PO Q6-8H PRN (Reason: nausea and vomiting) Qty: 20 RF: 0 oxycodone-acetaminophen [Percocet] 5-325 mg tablet 1 tab PO Q6H PRN (Reason: pain) Qty: 7 RF: 0 Referrals: Staci Rowell MD [Physician] - See Instructions (follow up in 1-2 weeks) Zandra Otero MD [Primary Care Provider] - See Instructions (follow up in 1 week) Discharge Instructions Additional Instructions: Follow up with Dr. Rowell in 1 week for bx results and steroid taper Status ED Status: Left Department
[2018-08-06 11:35] VITALS: RESP 18
[2018-08-06 16:04] VITALS: BP 115/71; PULSE 100; TEMP 98.5; O2SAT 96
[2018-08-07] MEDS ORDERED: predniSONE 20 MG Tablet PO SCH (09:00)
== END 2018-08-06 17:43 | disposition home or self-care (01) ==
LOC: NEPE 14:03 → NEDH 19:50 → NEPFCDU 23:20 → N06 07-31 02:15
PROVIDERS: ADMIT Hospitalist; ATTEND Hospitalist
PROC: COLONOS (2018-08-01 16:55)